=== PATIENT | female | born 1955 | race Caucasian/White ===

== ENCOUNTER 2016-12-13 21:46 | Inpatient (IN) | payer MEDICARE, OTHER ==
[2016-12-13 21:58] VITALS: BMI 34.4
[2016-12-13] MEDS ORDERED: Albuterol-Ipratrop 3 mg / 0.5 (3 ml) UD IH STA (22:06)
--- NOTE | 2016-12-13 22:10 | ED PDOC ---
Arrival/HPI - General Chief Complaint: Shortness Of Breath Time Seen by Provider: 12/13/16 21:50 Historian: Patient - History of Present Illness Narrative History of Present Illness (Text): 12/13/16 22:01 Lottie Wong is a 61 year old female, whose past medical history includes COPD, hypertension, asthma, and is a former smoker, presents to the emergency department complaining of chest tightness. She reports she developed chest tightness tonight and notes she has been experiencing subjective fever, chills, and dry cough for the past week. Patient states she has took [id number] medication with no significant relief. Patient denies shortness of breath, headache, nausea, vomiting, diarrhea, diaphoresis, jaw pain, back pain, lower extremity pain/swelling, or other complaints. Time/Duration: 1 week Symptom Onset: Sudden Symptom Course: Unchanged Quality: Tightness (chest) Modifying Factors (Text): None Associated Symptoms (Text): cough, chills, and fever Past Medical History - Provider Review Nursing Documentation Reviewed: Yes - Infectious Disease Hx of Infectious Diseases: None - Tetanus Immunization Tetanus Immunization: Unknown - Reproductive Menopause: No - Past Medical History Past Medical History: No Previous - Cardiac Hx Cardiac Disorders: Yes Hx Hypertension: Yes - Pulmonary Hx Asthma: Yes Hx Chronic Obstructive Pulmonary Disease (COPD): Yes - Neurological Hx Neurological Disorder: No - HEENT Hx HEENT Disorder: No - Renal Hx Renal Disorder: No - Endocrine/Metabolic Hx Endocrine Disorders: No - Hematological/Oncological Hx Blood Disorders: No - Integumentary Hx Dermatological Disorder: No - Musculoskeletal/Rheumatological Hx Musculoskeletal Disorders: Yes Hx Degenerative Joint Disease: Yes Hx Rheumatoid Arthritis: Yes Hx Spinal Stenosis: Yes - Gastrointestinal Hx Gastrointestinal Disorders: No - Genitourinary/Gynecological Hx Genitourinary Disorders: No - Psychiatric Hx Anxiety: Yes Hx Depression: No Hx Emotional Abuse: No Hx Physical Abuse: No Hx Substance Use: No - Past Surgical History Past Surgical History: Non-Contributing - Surgical History Hx Hysterectomy: Yes Hx Joint Replacement: Yes (bilateral knees) - Anesthesia Hx Anesthesia: Yes - Suicidal Assessment Feels Threatened In Home Enviroment: No Family/Social History - Physician Review Nursing Documentation Reviewed: Yes Family/Social History: Hypertension Smoking Status: Former Smoker Hx Alcohol Use: No Hx Substance Use: No Hx Substance Use Treatment: No Allergies/Home Meds Allergies/Adverse Reactions: Allergies acetaminophen [From Percocet] Allergy (Verified 07/25/15 00:08) hives aspirin Allergy (Verified 12/13/16 22:17) RASH azithromycin [From Zithromax] Allergy (Verified 07/25/15 00:08) RASH codeine Allergy (Verified 07/25/15 00:08) ANAPHYLAXIS meperidine HCl [From Demerol] Allergy (Verified 07/24/15 17:37) SWELLING morphine Allergy (Verified 07/24/15 17:37) SWELLING oxycodone HCl [From Percocet] Allergy (Verified 07/25/15 00:08) hives tramadol Allergy (Verified 07/24/15 17:37) SWELLING hydrocodone bitartrate [From Vicodin] Adverse Reaction (Verified 07/25/15 00:08) NAUSEA zithromax Allergy (Uncoded 07/25/15 00:08) hives Home Medications: Home Meds Medication Instructions Recorded Confirmed Unobtainable 12/14/16 12/14/16 Review of Systems - Review of Systems Constitutional: Fevers, Other (chills) Eyes: Normal ENT: Normal Respiratory: Cough. absent: SOB Cardiovascular: Chest Pain (tightness) Gastrointestinal: Normal. absent: Diarrhea, Nausea, Vomiting Genitourinary Female: Normal. absent: Frequency Musculoskeletal: Normal. absent: Neck Pain Skin: Normal Neurological: Normal. absent: Headache, Dizziness Endocrine: Normal Hemo/Lymphatic: Normal Psychiatric: Normal. absent: Depression Physical Exam Vital Signs Reviewed: Yes Vital Signs Temp Pulse Resp BP Pulse Ox 12/14/16 02:11 86 16 149/86 98 12/13/16 22:07 20 96 12/13/16 21:58 98.3 F 97 H 24 187/94 H 93 L Temperature: Afebrile Blood Pressure: Hypertensive Pulse: Tachycardic Respiratory Rate: Normal Appearance: Positive for: Well-Appearing, Non-Toxic, Comfortable Pain Distress: None Mental Status: Positive for: Alert and Oriented X 3 - Systems Exam Head: Present: Atraumatic, Normocephalic Pupils: Present: PERRL Extroacular Muscles: Present: EOMI Conjunctiva: Present: Normal Mouth: Present: Moist Mucous Membranes Neck: Present: Normal Range of Motion Respiratory/Chest: Present: Clear to Auscultation, Good Air Exchange. No: Respiratory Distress, Accessory Muscle Use Cardiovascular: Present: Regular Rate and Rhythm, Normal S1, S2. No: Murmurs Abdomen: Present: Normal Bowel Sounds. No: Tenderness, Distention, Peritoneal Signs Upper Extremity: Present: Normal Inspection. No: Cyanosis, Edema Lower Extremity: Present: Normal Inspection. No: Edema Neurological: Present: GCS=15, CN II-XII Intact, Speech Normal Skin: Present: Warm, Dry, Normal Color. No: Rashes Psychiatric: Present: Alert, Oriented x 3, Normal Insight, Normal Concentration Medical Decision Making ED Course and Treatment: 12/13/16 22:01 Impression: 61 year old female with chest tightness, fever, chills, and cough.. Differential Diagnosis included but are not limited to: COPD vs. ACS vs. pneumonia vs. bronchitis Plan: -- EKG -- Chest X-ray -- Labs -- Aspirin and Duoneb -- Reassess and disposition Prior Visits: Notes and results from previous visits were reviewed. On 07/24/2015 patient came in complaining of shortness of breath. Patient was admitted and diagnosed with influenza-like illness, Tachycardia, Fever. EKG: ED Physician ordered, reviewed, and independently interpreted the EKG. Rate : 97 BPM Rhythm : NSR Interpretation : Non-specific ST/T-wave changes. Inferior infarct. Comparison : Unchanged from 07/24/2015 12/14/16 00:30 Reviewed Chest X-ray shows no acute processes. 12/14/2016 01:16 Case discussed [facility] Dr. Weathers, who is aware and agrees with plan. Accepts patient into her service. Patient will go into telemetry observation for chest pain. Request consults with Dr. Gonzalez and Dr. Hays. 12/14/16 02:10 - Lab Interpretations Lab Results: 12/13/16 22:25 12/13/16 22:25 Lab Results 12/13/16 22:25: PT 11.1, INR 1.03, APTT 28.2 12/13/16 22:25: WBC 9.8 D, RBC 4.26, Hgb 12.1, Hct 36.7, MCV 86.2, MCH 28.4, MCHC 33.0, RDW 13.6, Plt Count 311, MPV 9.1 12/13/16 22:25: Sodium 139, Potassium 3.4 L, Chloride 104, Carbon Dioxide 25, Anion Gap 13, BUN 14, Creatinine 0.8, Est GFR ( Amer) > 60, Est GFR (Non- Af Amer) > 60, Random Glucose 194 H, Calcium 9.2, Total Bilirubin 0.6, AST 23, ALT 26, Alkaline Phosphatase 138 H, Lactate Dehydrogenase 513, Total Creatine Kinase 132, Troponin I < 0.01, Total Protein 7.3, Albumin 3.5, Globulin 3.8, Albumin/Globulin Ratio 0.9 L I have reviewed the lab results: Yes - RAD Interpretation Radiology Orders: 12/13/16 22:06 CHEST PORTABLE [RAD] Stat - EKG Interpretation Interpreted by ED Physician: Yes Type: 12 lead EKG - Medication Orders Current Medication Orders: Albuterol/Ipratropium (Duoneb 3 Mg/0.5 Mg (3 Ml) Ud) 3 ml IH Q4H PRN PRN Reason: Wheezing Discontinued Medications Albuterol/Ipratropium (Duoneb 3 Mg/0.5 Mg (3 Ml) Ud) 3 ml IH ONCE STA Stop: 12/13/16 22:07 Last Admin: 12/13/16 22:16 Dose: 3 ml Potassium Chloride (K-Dur 20 Meq Er Tab) 20 meq PO STAT STA Stop: 12/14/16 00:29 Last Admin: 12/14/16 00:51 Dose: 20 meq - Scribe Statement The provider has reviewed the documentation as recorded by the Julian Jamison training with Radha Gerber All medical record entries made by the Cecilibflori were at my direction and personally dictated by me. I have reviewed the chart and agree that the record accurately reflects my personal performance of the history, physical exam, medical decision making, and the department course for this patient. I have also personally directed, reviewed, and agree with the discharge instructions and disposition. Disposition/Present on Arrival - Present on Arrival Any Indicators Present on Arrival: No History of DVT/PE: No History of Uncontrolled Diabetes: No Urinary Catheter: No History of Decub. Ulcer: No History Surgical Site Infection Following: None - Disposition Have Diagnosis and Disposition been Completed?: Yes Diagnosis: Chest pain, COPD (chronic obstructive pulmonary disease) Disposition: HOSPITALIZED Disposition Time: 01:15 Patient Plan: Observation Patient Problems: Current Active Problems Problem Status Onset COPD (chronic obstructive pulmonary disease) Acute Chest pain Acute Condition: STABLE
[2016-12-13 22:36] LABS: HEMOGLOBIN 12.1 gm/dL (12.0-16.0); MEAN CELL VOLUME 86.2 fL (80.0-105.0); MEAN CORPUSCULAR HEMOGLOBIN 28.4 pg (25.0-35.0); MEAN PLATELET VOLUME 9.1 fl (7.0-11.0); RBC 4.26 10^6/uL (3.5-6.1); RED CELL DISTRIBUTION WIDTH 13.6 % (11.5-14.5); WHITE BLOOD COUNT 9.8 10^3/ul (4.5-11.0)
[2016-12-13 22:47] LABS: ALB/GLOB RATIO 0.9 (1.1-1.8); ALBUMIN 3.5 g/dL (3.0-4.8); ALT/SGPT 26 U/L (7-56); AST/SGOT 23 U/L (15-39); BLOOD UREA NITROGEN 14 mg/dL (7-21); CALCIUM 9.2 mg/dL (8.4-10.5); GFR AFRICAN-AMERICAN > 60; GFR NON-AFRICAN AMERICAN > 60
[2016-12-13 22:53] LABS: INR 1.03 (0.93-1.08); PARTIAL THROMBOPLASTIN TIME 28.2 Seconds (23.7-30.8); PROTHROMBIN TIME 11.1 Seconds (9.9-11.8)
[2016-12-13 22:58] LABS: TROPONIN I < 0.01 ng/mL
[2016-12-14] MEDS ORDERED: Potassium Chloride 20 mEq ER Tab PO STA (00:28)
--- NOTE | 2016-12-14 07:37 | RAD ---
HISTORY: pain COMPARISON: 07/24/2015 FINDINGS: LUNGS: No active pulmonary disease. PLEURA: No significant pleural effusion identified, no pneumothorax apparent. CARDIOVASCULAR: Normal. OSSEOUS STRUCTURES: No significant abnormalities. VISUALIZED UPPER ABDOMEN: Normal. OTHER FINDINGS: None. IMPRESSION: No active disease.
[2016-12-14 09:05] LABS: BASO # 0.05 K/mm3 (0.0-2.0); BASO % 0.6 % (0.0-3.0); EOS # 0.2 (0.0-0.7); GRAN # 6.62 (1.4-6.5); GRAN % 74.1 % (50.0-68.0); HEMOGLOBIN 12.8 gm/dL (12.0-16.0); LYMPH # 1.6 (1.2-3.4); LYMPH % 18.1 % (22.0-35.0); MEAN CELL VOLUME 86.4 fL (80.0-105.0); MEAN CORPUSCULAR HEMOGLOBIN 28.6 pg (25.0-35.0); MEAN CORPUSCULAR HGB CONC 33.2 g/dl (31.0-37.0); MEAN PLATELET VOLUME 9.2 fl (7.0-11.0); MONO # 0.5 (0.1-0.6); MONO % 5.2 % (1.0-6.0); PLATELET COUNT 330 10^3/uL (120.0-450.0); RBC 4.47 10^6/uL (3.5-6.1); RED CELL DISTRIBUTION WIDTH 13.6 % (11.5-14.5); WHITE BLOOD COUNT 8.9 10^3/ul (4.5-11.0)
[2016-12-14 09:08] LABS: ALB/GLOB RATIO 0.9 (1.1-1.8); ALBUMIN 3.9 g/dL (3.0-4.8); ALT/SGPT 25 U/L (7-56); AST/SGOT 19 U/L (15-39); BLOOD UREA NITROGEN 11 mg/dL (7-21); CALCIUM 9.3 mg/dL (8.4-10.5); GFR AFRICAN-AMERICAN > 60; GFR NON-AFRICAN AMERICAN > 60; HDL CHOLESTEROL 35 mg/dL (29-60)
[2016-12-14 09:19] LABS: LDL CHOLESTEROL 187 mg/dL (0-129)
[2016-12-14 09:21] LABS: TROPONIN I < 0.01 ng/mL
[2016-12-14] MEDS: Albuterol-Ipratrop 3 mg / 0.5 (3 ml) UD IH PRN ×2 (10:22→16:40)
--- NOTE | 2016-12-14 10:50 | CARD ---
APPROVED REPORT EKG Measurement Heart [id number] <Conclusion> Normal sinus rhythm Inferior infarct, age undetermined Abnormal ECG
[2016-12-14] MEDS ORDERED: Potassium Chloride 20 mEq ER Tab PO ONE (11:13)
--- NOTE | 2016-12-14 14:51 | CARD ---
APPROVED REPORT EXAM: Two-dimensional and M-mode echocardiogram with Doppler and color Doppler. INDICATION Chest Pain 2D DIMENSIONS Left Atrium (2D)3.6 (1.6-4.0cm)IVSd1.3 (0.7-1.1cm) Aortic Root (2D)2.4 (2.0-3.7cm)LVDd3.6 (3.9-5.9cm) PWd1.2 (0.7-1.1cm)LVDs2.1 (2.5-4.0cm) FS (%) 43.1 %LVEF (%)75.0 (>50%) M-Mode DIMENSIONS Aortic Cusp Exc.2.00 (1.5-2.0cm) Mitral Valve MV E Uadbmisb08.9cm/sMV A Lfpaksqg89.6cm/sE/A ratio1.2 TDI Lateral E' Peak V6.34cm/sMedial E' Peak V8.97cm/sE/Lateral E'13.2 E/Medial E'9.4 Pulmonary Valve PV Peak Oesjfhct052.0cm/sPV Peak Grad.4mmHg Tricuspid Valve TR Peak Kbzqgqqo097ph/sRAP [id number] Peak Gr.16mmHg [id number] LEFT VENTRICLE The left ventricle is normal size. There is mild concentric left ventricular hypertrophy. The left ventricular function is normal.EF-55% There is normal LV segmental wall motion. Transmitral Doppler flow pattern is Grade III-reversible restrictive diastolic dysfunction. No left ventricle thrombus noted on this study. There is no ventricular septal defect visualized. There is no left ventricular aneurysm. There is no mass noted in the left ventricle. RIGHT VENTRICLE The right ventricle is normal size. There is normal right ventricular wall thickness. The right ventricular systolic function is normal. ATRIA The left atrium size is normal. The right atrium size is normal. The interatrial septum is intact with no evidence for an atrial septal defect. AORTIC VALVE The aortic valve is thickened but opens well. No aortic regurgitation is present. There is no aortic valvular stenosis. There is no aortic valvular vegetation. MITRAL VALVE The mitral valve is thickened but opens well. Mitral regurgitation is mild to moderate. There is no mitral valve stenosis. There is no evidence of mitral valve prolapse. TRICUSPID VALVE The tricuspid valve leaflets are thickened , but open well. There is trace tricuspid regurgitation.RVSP-21 mmof Hg. There is no tricuspid valve stenosis. There is no tricuspid valve prolapse or vegetation. PULMONIC VALVE The pulmonic valve is borderline thickened. There is no pulmonic valvular regurgitation. There is no pulmonic valvular stenosis. GREAT VESSELS The aortic root is normal in size. The ascending aorta is normal in size. The pulmonary artery is normal. The IVC is normal in size and collapses >50% with inspiration. PERICARDIAL EFFUSION There is no pleural effusion. There is no pericardial effusion. <Conclusion> The left ventricle is normal size. There is mild concentric left ventricular hypertrophy. The left ventricular function is normal.EF-55% Mitral regurgitation is mild to moderate. There is trace tricuspid regurgitation.RVSP-21 mmof Hg. No Vegetation no thrombus.
[2016-12-14] MEDS: cefTRIAXone 1 gm 1 GM/100 ML BAG IVPB SCH (17:23)
[2016-12-14] MEDS: Benzocaine/Menthol (Cepacol) Lozenge MT PRN (17:44)
[2016-12-14] MEDS: MethylPREDNISolone 40 mg Vial IVP SCH (21:55)
[2016-12-14] MEDS: Fluticasone-Salmeterol 500-50mcg Diskus INH SCH (22:00)
[2016-12-15] MEDS: Pantoprazole 40 mg EC Tab PO SCH (06:20)
[2016-12-15 08:19] LABS: MEAN CELL VOLUME 85.7 fL (80.0-105.0); MEAN CORPUSCULAR HEMOGLOBIN 28.7 pg (25.0-35.0); MEAN CORPUSCULAR HGB CONC 33.5 g/dl (31.0-37.0); MEAN PLATELET VOLUME 9.4 fl (7.0-11.0); RBC 4.88 10^6/uL (3.5-6.1); RED CELL DISTRIBUTION WIDTH 13.4 % (11.5-14.5); WHITE BLOOD COUNT 10.3 10^3/ul (4.5-11.0)
[2016-12-15 08:31] LABS: BLOOD UREA NITROGEN 14 mg/dL (7-21); CALCIUM 9.9 mg/dL (8.4-10.5); GFR AFRICAN-AMERICAN > 60; GFR NON-AFRICAN AMERICAN > 60; HDL CHOLESTEROL 37 mg/dL (29-60)
[2016-12-15 08:38] LABS: % IRON SATURATION 15 % (20-55); IRON 43 ug/dL (45-180); TOTAL IRON BINDING CAPACITY 290 ug/dL (265-497)
[2016-12-15 08:42] LABS: LDL CHOLESTEROL 213 mg/dL (0-129)
[2016-12-15 09:16] LABS: TROPONIN I < 0.01 ng/mL
[2016-12-15] MEDS: Fluticasone-Salmeterol 500-50mcg Diskus INH SCH ×2 (10:44→21:21)
[2016-12-15] MEDS: Enoxaparin 40 mg Syringe SC SCH (10:52)
[2016-12-15] MEDS: MethylPREDNISolone 40 mg Vial IVP SCH ×2 (12:51→21:24)
[2016-12-15] MEDS: cefTRIAXone 1 gm 1 GM/100 ML BAG IVPB SCH (14:07)
--- NOTE | 2016-12-15 14:44 | CP.PCM.CON ---
<Pranav Wallis - Last Filed: 12/15/16 14:44> History of Present Illness - History of Present Illness History of Present Illness: PGY-[address] Mao's Neurology Service: Reason for consultation: Right sided numbness This is a 61 year old female with PMHx COPD, HTN, Asthma who presented complaining of chest tightness. Associated symptoms include subjective fever, chills, dry cough. Patient has also been experiencing intermittent right sided numbness from the face down to the leg. Patient denies weakness, headaches. PMHx: COPD, Asthma, HTN PSHx: Knee arthroplasy (2010, 2011) Family Hx: Mother with CVA Social: Former smoker, quit at age 16. Denies alcohol, drug use. Allergies: Meperidine, Morphine, Tramadol, Tylenol, Azithromycin, codeine, ASA Review of Systems - Constitutional Constitutional: absent: Headache, Weakness - EENT Eyes: absent: Change in Vision - Cardiovascular Cardiovascular: absent: Chest Pain - Respiratory Respiratory: absent: Dyspnea - Gastrointestinal Gastrointestinal: absent: Abdominal Pain - Genitourinary Genitourinary: absent: Dysuria - Musculoskeletal Musculoskeletal: Numbness. absent: Muscle Weakness - Neurological Neurological: Numbness. absent: Dizziness, Headaches - Endocrine Endocrine: absent: Palpitations Past Patient History - Infectious Disease Hx of Infectious Diseases: None - Tetanus Immunizations Tetanus Immunization: Unknown - Past Medical History & Family History Past Medical History?: Yes - Past Social History Smoking Status: Former Smoker - CARDIAC Hx Cardiac Disorders: Yes Hx Hypertension: Yes - PULMONARY Hx Respiratory Disorders: Yes Hx Asthma: Yes Hx Chronic Obstructive Pulmonary Disease (COPD): Yes Hx Pneumonia: Yes - NEUROLOGICAL Hx Neurological Disorder: No - HEENT Hx HEENT Problems: Yes (Glasses) - RENAL Hx Kidney Stones: Yes - ENDOCRINE/METABOLIC Hx Endocrine Disorders: No - HEMATOLOGICAL/ONCOLOGICAL Hx Blood Disorders: No - INTEGUMENTARY Hx Dermatological Problems: No - MUSCULOSKELETAL/RHEUMATOLOGICAL Hx Arthritis: Yes Hx Degenerative Joint Disease: Yes Hx Falls: Yes - GASTROINTESTINAL Hx Gastrointestinal Disorders: No - GENITOURINARY/GYNECOLOGICAL Hx Urinary Tract Infection: Yes - PSYCHIATRIC Hx Anxiety: Yes - SURGICAL HISTORY Hx Surgeries: Yes - ANESTHESIA Hx Anesthesia: Yes Meds Allergies/Adverse Reactions: Allergies Allergy/AdvReac Type Severity Reaction Status Date / Time acetaminophen [From Percocet] Allergy hives Verified 07/25/15 00:08 aspirin Allergy RASH Verified 12/13/16 22:17 azithromycin [From Zithromax] Allergy RASH Verified 07/25/15 00:08 codeine Allergy ANAPHYLAXIS Verified 07/25/15 00:08 meperidine HCl [From Demerol] Allergy SWELLING Verified 07/24/15 17:37 morphine Allergy SWELLING Verified 07/24/15 17:37 oxycodone HCl [From Percocet] Allergy hives Verified 07/25/15 00:08 tramadol Allergy SWELLING Verified 07/24/15 17:37 hydrocodone bitartrate AdvReac NAUSEA Verified 07/25/15 00:08 [From Vicodin] zithromax Allergy hives Uncoded 07/25/15 00:08 - Medications Medications: Current Medications Albuterol/Ipratropium (Duoneb 3 Mg/0.5 Mg (3 Ml) Ud) 3 ml IH [id number] PRN PRN Reason: Shortness of Breath Amlodipine Besylate (Norvasc) 10 mg PO DAILY [facility] Last Admin: 12/15/16 10:40 Dose: 10 mg Atorvastatin Calcium (Lipitor) 40 mg PO DIN [facility] Last Admin: 12/14/16 17:23 Dose: 40 mg Benzocaine/Menthol (Cepacol Sore Throat) 1 hemal MT Q2H PRN PRN Reason: Sore Throat Last Admin: 12/14/16 17:44 Dose: 1 hemal Enoxaparin Sodium (Lovenox) 40 mg SC DAILY [facility] PRN Reason: Protocol Last Admin: 12/15/16 10:52 Dose: Not Given Hydrochlorothiazide (Microzide) 12.5 mg PO DAILY [facility] Last Admin: 12/15/16 10:43 Dose: 12.5 mg Ceftriaxone Sodium (Rocephin 1 Gram Ivpb) 1 gm in 100 mls @ 100 mls/hr IVPB DAILY [facility] PRN Reason: Protocol Last Admin: 12/15/16 14:07 Dose: 100 mls/hr Methylprednisolone (Solu-Medrol) 40 mg IVP Q12 [facility] Last Admin: 12/15/16 12:51 Dose: 40 mg Montelukast Sodium (Singulair) 10 mg PO HS [facility] Last Admin: 12/14/16 22:03 Dose: Not Given Pantoprazole Sodium (Protonix Ec Tab) 40 mg PO 0600 [facility] Last Admin: 12/15/16 06:20 Dose: 40 mg Fluticasone/Salmeterol (Advair Diskus 500/50) 1 puff INH Q12 [facility] Last Admin: 12/15/16 10:44 Dose: 1 puff Physical Exam - Constitutional Appears: Non-toxic, No Acute Distress - Head Exam Head Exam: ATRAUMATIC, NORMAL INSPECTION, NORMOCEPHALIC - Eye Exam Eye Exam: EOMI, PERRL - ENT Exam ENT Exam: Mucous Membranes Moist - Respiratory Exam Respiratory Exam: Clear to Auscultation Bilateral - Cardiovascular Exam Cardiovascular Exam: REGULAR RHYTHM - GI/Abdominal Exam GI & Abdominal Exam: Normal Bowel Sounds - Neurological Exam Neurological exam: Alert, CN II-XII Intact, Oriented x3, Reflexes Normal Additional comments: Non-focal neurological exam. No pronator drift. Not currently numb. Sensations intact throughout. Muscle strength 5/5 throughout. Results - Vital Signs Recent Vital Signs: Last Vital Signs Temp 98.4 F 12/15/16 07:30 Pulse 92 H 12/15/16 07:30 Resp 18 12/15/16 07:30 BP 145/82 12/15/16 12:18 Pulse Ox 96 12/15/16 07:30 - Labs Result Diagrams: 12/15/16 07:30 12/15/16 07:30 Labs: Laboratory Results - last 24 hr 12/15/16 12/15/16 12/15/16 07:30 07:30 07:30 WBC RBC Hgb Hct MCV MCH MCHC RDW Plt Count MPV Sodium 137 Potassium 4.4 Chloride 104 Carbon Dioxide 22 Anion Gap 15 BUN 14 Creatinine 0.7 Est GFR ( Amer) > 60 Est GFR (Non-Af Amer) > 60 Random Glucose 178 H Hemoglobin A1c 6.5 Calcium 9.9 Iron 43 L TIBC 290 % Saturation 15 L Lactate Dehydrogenase Total Creatine Kinase Troponin I Triglycerides 48 Cholesterol 261 H LDL Cholesterol Direct 213 H HDL Cholesterol 37 Vitamin B12 509 Folate 8.0 TSH 3rd Generation 12/15/16 12/15/16 12/15/16 07:30 07:30 07:30 WBC 10.3 RBC 4.88 Hgb 14.0 Hct 41.8 MCV 85.7 MCH 28.7 MCHC 33.5 RDW 13.4 Plt Count 373 MPV 9.4 Sodium Potassium Chloride Carbon Dioxide Anion Gap BUN Creatinine Est GFR ( Amer) Est GFR (Non-Af Amer) Random Glucose Hemoglobin A1c Calcium Iron TIBC % Saturation Lactate Dehydrogenase 446 Total Creatine Kinase 78 Troponin I < 0.01 Triglycerides Cholesterol LDL Cholesterol Direct HDL Cholesterol Vitamin B12 Folate TSH 3rd Generation 0.47 Assessment & Plan - Assessment and Plan (Free Text) Assessment: This is a 61 year old female with PMHx COPD, HTN, Asthma who presented complaining of chest tightness. Patient is intermittently experiencing paresthesias on the entire right side of her body. It is likely that hypertensive urgency is causing these paresthesias. No focal deficits on examination. Patient is iron deficient. Plan: 1) Maintain SBP between 130-140 mmHg. 2) Monitor and manage anemia. 3) Gabapentin 100 mg qHS for paresthesias. 4) Since patient cannot tolerate MRI, CT head without contrast 5) Since allergic to ASA, start Plavix 75 mg for stroke prevention Patient is neurologically stable - Date & Time Date: 12/15/16 Time: 14:53 <Margarito Mao - Last Filed: 12/15/16 14:55> Meds - Medications Medications: Current Medications Albuterol/Ipratropium (Duoneb 3 Mg/0.5 Mg (3 Ml) Ud) 3 ml IH [id number] PRN PRN Reason: Shortness of Breath Amlodipine Besylate (Norvasc) 10 mg PO DAILY [facility] Last Admin: 12/15/16 10:40 Dose: 10 mg Atorvastatin Calcium (Lipitor) 40 mg PO DIN [facility] Last Admin: 12/14/16 17:23 Dose: 40 mg Benzocaine/Menthol (Cepacol Sore Throat) 1 hemal MT Q2H PRN PRN Reason: Sore Throat Last Admin: 12/14/16 17:44 Dose: 1 hemal Enoxaparin Sodium (Lovenox) 40 mg SC DAILY [facility] PRN Reason: Protocol Last Admin: 12/15/16 10:52 Dose: Not Given Gabapentin (Neurontin) 100 mg PO TID [facility] PRN Reason: Protocol Hydrochlorothiazide (Microzide) 12.5 mg PO DAILY [facility] Last Admin: 12/15/16 10:43 Dose: 12.5 mg Ceftriaxone Sodium (Rocephin 1 Gram Ivpb) 1 gm in 100 mls @ 100 mls/hr IVPB DAILY [facility] PRN Reason: Protocol Last Admin: 12/15/16 14:07 Dose: 100 mls/hr Methylprednisolone (Solu-Medrol) 40 mg IVP Q12 [facility] Last Admin: 12/15/16 12:51 Dose: 40 mg Montelukast Sodium (Singulair) 10 mg PO HS [facility] Last Admin: 12/14/16 22:03 Dose: Not Given Pantoprazole Sodium (Protonix Ec Tab) 40 mg PO 0600 [facility] Last Admin: 12/15/16 06:20 Dose: 40 mg Fluticasone/Salmeterol (Advair Diskus 500/50) 1 puff INH Q12 [facility] Last Admin: 12/15/16 10:44 Dose: 1 puff Results - Vital Signs Recent Vital Signs: Last Vital Signs Temp 98.4 F 12/15/16 07:30 Pulse 92 H 12/15/16 07:30 Resp 18 12/15/16 07:30 BP 145/82 12/15/16 12:18 Pulse Ox 96 12/15/16 07:30 - Labs Result Diagrams: 12/15/16 07:30 12/15/16 07:30 Labs: Laboratory Results - last 24 hr 12/15/16 12/15/16 12/15/16 07:30 07:30 07:30 WBC RBC Hgb Hct MCV MCH MCHC RDW Plt Count MPV Sodium 137 Potassium 4.4 Chloride 104 Carbon Dioxide 22 Anion Gap 15 BUN 14 Creatinine 0.7 Est GFR ( Amer) > 60 Est GFR (Non-Af Amer) > 60 Random Glucose 178 H Hemoglobin A1c 6.5 Calcium 9.9 Iron 43 L TIBC 290 % Saturation 15 L Lactate Dehydrogenase Total Creatine Kinase Troponin I Triglycerides 48 Cholesterol 261 H LDL Cholesterol Direct 213 H HDL Cholesterol 37 Vitamin B12 509 Folate 8.0 TSH 3rd Generation 12/15/16 12/15/16 12/15/16 07:30 07:30 07:30 WBC 10.3 RBC 4.88 Hgb 14.0 Hct 41.8 MCV 85.7 MCH 28.7 MCHC 33.5 RDW 13.4 Plt Count 373 MPV 9.4 Sodium Potassium Chloride Carbon Dioxide Anion Gap BUN Creatinine Est GFR ( Amer) Est GFR (Non-Af Amer) Random Glucose Hemoglobin A1c Calcium Iron TIBC % Saturation Lactate Dehydrogenase 446 Total Creatine Kinase 78 Troponin I < 0.01 Triglycerides Cholesterol LDL Cholesterol Direct HDL Cholesterol Vitamin B12 Folate TSH 3rd Generation 0.47 Attending/Attestation - Attestation I have personally seen and examined this patient.: Yes I have fully participated in the care of the patient.: Yes I have reviewed all pertinent clinical information: Yes
--- NOTE | 2016-12-15 15:51 | CT ---
PROCEDURE: CT HEAD WITHOUT CONTRAST. HISTORY: RIGHT SIDE NUMBNESS COMPARISON: None available. TECHNIQUE: Axial computed tomography images were obtained through the head/brain without intravenous contrast. Radiation dose: Total exam DLP = 667.72 mGy-cm. This CT exam was performed using one or more of the following dose reduction techniques: Automated exposure control, adjustment of the mA and/or kV according to patient size, and/or use of iterative reconstruction technique. FINDINGS: HEMORRHAGE: No intracranial hemorrhage. BRAIN: No mass effect or edema. No atrophy or chronic microvascular ischemic changes. VENTRICLES: Unremarkable. No hydrocephalus. CALVARIUM: Unremarkable. PARANASAL SINUSES: Unremarkable as visualized. No significant inflammatory changes. MASTOID AIR CELLS: Unremarkable as visualized. No inflammatory changes. OTHER FINDINGS: None. IMPRESSION: No evidence of acute intracranial hemorrhage intracranial collection territorial infarct mass effect or midline shift. The MRI study is more sensitive for acute or subacute infarction.
--- NOTE | 2016-12-15 16:15 | US ---
PROCEDURE: Bilateral carotid artery duplex ultrasound HISTORY: Carotid stenosis TIA PHYSICIAN(S): Frank Akbar MD. TECHNIQUE: Duplex sonography and color-flow Doppler were used to evaluate the carotid bifurcations and limited segments of the vertebral arteries bilaterally. FINDINGS: There is mild to moderate smooth heterogeneous plaque noted at the carotid bifurcations bilaterally. The peak systolic velocity in the proximal right internal carotid artery is 139 cm/sec. This corresponds to a 40-59 percent proximal right ICA stenosis. Normal systolic velocities are noted in the proximal right external carotid artery. There is antegrade flow in the right vertebral artery. The peak systolic velocity in the proximal left internal carotid artery is 91 cm per sec. This corresponds to a 20-39 percent proximal left ICA stenosis. Normal velocities are seen in the proximal left external carotid artery. There is antegrade flow in the small left vertebral artery. IMPRESSION: 1. 40-59 percent proximal right ICA stenosis. 2. 20-39 percent proximal left ICA stenosis. 3. Antegrade flow in both vertebral arteries.
--- NOTE | 2016-12-15 19:37 | CP.PCM.PN ---
Subjective - Date & Time of Evaluation Date of Evaluation: 12/15/16 Time of Evaluation: 12:00 - Subjective Subjective: This is a 61 year old female with PMHx COPD, HTN, Asthma who presented complaining of chest tightness. Associated symptoms include subjective fever, chills, dry cough. Patient has also been experiencing intermittent right sided numbness from the face down to the leg. Patient denies weakness, headaches.neuromnconsult called Objective - Vital Signs/Intake and Output Vital Signs (last 24 hours): Temp Pulse Resp BP Pulse Ox 97.4 F L 99 H 18 145/80 100 12/15/16 17:17 12/15/16 17:17 12/15/16 17:17 12/15/16 17:17 12/15/16 17:17 Intake and Output: 12/15/16 12/16/16 18:59 06:59 Intake Total 780 Balance 780 - Medications Medications: Current Medications Albuterol/Ipratropium (Duoneb 3 Mg/0.5 Mg (3 Ml) Ud) 3 ml IH [id number] PRN PRN Reason: Shortness of Breath Amlodipine Besylate (Norvasc) 10 mg PO DAILY [facility] Last Admin: 12/15/16 10:40 Dose: 10 mg Atorvastatin Calcium (Lipitor) 40 mg PO DIN [facility] Last Admin: 12/15/16 17:43 Dose: Not Given Benzocaine/Menthol (Cepacol Sore Throat) 1 hemal MT Q2H PRN PRN Reason: Sore Throat Last Admin: 12/14/16 17:44 Dose: 1 hemal Enoxaparin Sodium (Lovenox) 40 mg SC DAILY LE PRN Reason: Protocol Last Admin: 12/15/16 10:52 Dose: Not Given Gabapentin (Neurontin) 100 mg PO TID LE PRN Reason: Protocol Last Admin: 12/15/16 17:43 Dose: 100 mg Hydrochlorothiazide (Microzide) 12.5 mg PO DAILY [facility] Last Admin: 12/15/16 10:43 Dose: 12.5 mg Ceftriaxone Sodium (Rocephin 1 Gram Ivpb) 1 gm in 100 mls @ 100 mls/hr IVPB DAILY [facility] PRN Reason: Protocol Last Admin: 12/15/16 14:07 Dose: 100 mls/hr Methylprednisolone (Solu-Medrol) 40 mg IVP Q12 [facility] Last Admin: 12/15/16 12:51 Dose: 40 mg Montelukast Sodium (Singulair) 10 mg PO HS [facility] Last Admin: 12/14/16 22:03 Dose: Not Given Pantoprazole Sodium (Protonix Ec Tab) 40 mg PO 0600 [facility] Last Admin: 12/15/16 06:20 Dose: 40 mg Fluticasone/Salmeterol (Advair Diskus 500/50) 1 puff INH Q12 [facility] Last Admin: 12/15/16 10:44 Dose: 1 puff - Labs Labs: 12/15/16 07:30 12/15/16 07:30 PT 11.1 Seconds (9.9-11.8) 12/13/16 22:25 INR 1.03 (0.93-1.08) 12/13/16 22:25 APTT 28.2 Seconds (23.7-30.8) 12/13/16 22:25 - Constitutional Appears: Well - Head Exam Head Exam: ATRAUMATIC, NORMAL INSPECTION, NORMOCEPHALIC - Eye Exam Eye Exam: EOMI, Normal appearance, PERRL Pupil Exam: NORMAL ACCOMODATION, PERRL - ENT Exam ENT Exam: Mucous Membranes Moist, Normal Exam - Neck Exam Neck Exam: Full ROM, Normal Inspection. absent: Lymphadenopathy - Respiratory Exam Respiratory Exam: Clear to Ausculation Bilateral, NORMAL BREATHING PATTERN - Cardiovascular Exam Cardiovascular Exam: REGULAR RHYTHM, +S1, +S2. absent: Murmur - GI/Abdominal Exam GI & Abdominal Exam: Soft, Normal Bowel Sounds. absent: Tenderness - Back Exam Back Exam: NORMAL INSPECTION - Neurological Exam Neurological Exam: Alert, Awake, CN II-XII Intact, Normal Gait, Oriented x3 - Psychiatric Exam Psychiatric exam: Normal Affect, Normal Mood - Skin Skin Exam: Dry, Intact, Normal Color, Warm Assessment and Plan (1) COPD (chronic obstructive pulmonary disease) Status: Acute (2) Chest pain Status: Acute (3) Abdominal pain Status: Acute (4) Abnormal renal function Status: Acute (5) Dyspnea Status: Acute (6) Fever Status: Acute (7) Influenza-like illness Status: Acute (8) Tachycardia Status: Acute - Assessment and Plan (Free Text) Assessment: - Assessment and Plan (Free Text) Assessment: This is a 61 year old female with PMHx COPD, HTN, Asthma who presented complaining of chest tightness. Patient is intermittently experiencing paresthesias on the entire right side of her body. It is likely that hypertensive urgency is causing these paresthesias. No focal deficits on examination. Patient is iron deficient. Plan: 1) Maintain SBP between 130-140 mmHg. 2) Monitor and manage anemia. 3) Gabapentin 100 mg qHS for paresthesias. 4) Since patient cannot tolerate MRI, CT head without contrast 5) Since allergic to ASA, start Plavix 75 mg for stroke prevention Patient is neurologically stable as per neuro , equipment coordinator and cardio is on the case
[2016-12-15] MEDS: Benzocaine/Menthol (Cepacol) Lozenge MT PRN (20:06)
[2016-12-15] MEDS: Albuterol-Ipratrop 3 mg / 0.5 (3 ml) UD IH PRN (20:36)
--- NOTE | 2016-12-16 00:40 | CON ---
DATE: 12/14/2016 REFERRING PHYSICIAN: Kathe Waethers MD REASON FOR CONSULTATION: Cough, shortness of breath, and laryngitis. HISTORY OF PRESENT ILLNESS: This is a 61-year-old female with known history of chronic obstructive lung disease, hypertension, stopped smoking many years ago, been having cough and shortness of breath, treated as an outpatient with amoxicillin without much benefit, and had increased chest tightness, cough, and shortness of breath. She came to emergency room where she got IV and inhaled bronchodilator with some relief of persistent symptom, ended up getting admission. Presently, lying in the bed, has hoarseness, facial pain, and cough. No chest pain, no hematuria, and no diarrhea, leg pain or leg swelling. PAST MEDICAL HISTORY: Chronic obstructive lung disease and hypertension. FAMILY HISTORY: No significant cardiopulmonary disease reported other than hypertension. SOCIAL HISTORY: She *------* stopped smoking many years ago. ALLERGY: TO MULTIPLE MEDICATIONS INCLUDING ACETAMINOPHEN, ASPIRIN, ZITHROMAX, CODEINE, MEPERIDINE, MORPHINE, OXYCODONE, TRAMADOL, AND HYDROCODONE. REVIEW OF SYSTEMS: No headache, rhinitis, facial pain, cough, shortness of breath. No chest pain. Admits to snoring at nighttime and daytime sleeping, history of GERD. No abdominal pain or dysuria. No leg pain or leg swelling. PHYSICAL EXAMINATION: GENERAL: Lying in the bed in mild distress secondary to cough and shortness of breath. VITAL SIGNS: Temperature is 98, heart rate is 88, respiratory rate is 20, and blood pressure is 138/73. Pulse oximetry is 99% on nasal cannula. HEENT: Moist mucus membranes. Crowded airway, Mallampati class IV, has bilateral *------* tenderness.. NECK: Supple. No JVD. LUNGS: Scattered rhonchi and few wheezing. CARDIOPULMONARY: S1 and S2. ABDOMEN: Positive epigastric area tenderness. Positive bowel sounds. Abdomen is soft on palpation. EXTREMITIES: There is no edema. NEUROLOGIC: Awake and follows simple commands. MEDICATIONS: She is on Advair 500/50 mcg one puff twice a day, Cepacol lozenges p.r.n., *------* q.6 hours p.r.n., Lipitor 40 mg daily, hydrochlorothiazide 12.5 mg daily, Norvasc 10 mg daily, and Rocephin 1 g daily. LABORATORY DATA: Shows hemoglobin of 12.8, hematocrit of 38.6, WBC of 8.9, and platelet is 330. INR is 1.03 and PTT is 28. Sodium is 140, potassium is 3.9, chloride is 105, bicarbonate is 25, BUN is 11, creatinine is 0.7, glucose is 111, hemoglobin A1c 6.4, calcium 9.3, AST 19, ALT is 25, and alkaline phosphatase is 160. Troponin is less than 0.01. Albumin is 3.9. Cholesterol is 226. TSH is 1.29. DIAGNOSTIC DATA: She had an echocardiogram done today, which showed right ventricular systolic pressure is 21 and left ventricular ejection fraction is 55%, and mild concentric left ventricular hypertrophy. IMPRESSION AND PLAN: Sinusitis with postnasal drip and exacerbation of chronic obstructive lung disease, history of hypertension, may have a gastroesophageal reflux disease, high risk for sleep apnea syndrome, and hyperlipidemia. Case discussed with nursing staff, also spoke to the patient's brother at bedside, all the questions were answered. I agreed with Dr. Weathers with the present management.. We will add Flovent *------* twice a day, [id number] mg at bedtime, and Solo-Medrol 40 mg q.8 hours. Continue Rocephin and Protonix 40 mg daily. Deep venous thrombosis prophylaxis, outpatient PFT and also benefit from sleep study as an outpatient. We will follow with you. Denton Hays MD
[2016-12-16 07:06] LABS: HEMOGLOBIN 13.1 gm/dL (12.0-16.0); MEAN CELL VOLUME 85.3 fL (80.0-105.0); MEAN CORPUSCULAR HEMOGLOBIN 28.7 pg (25.0-35.0); MEAN CORPUSCULAR HGB CONC 33.7 g/dl (31.0-37.0); MEAN PLATELET VOLUME 9.2 fl (7.0-11.0); RBC 4.56 10^6/uL (3.5-6.1); RED CELL DISTRIBUTION WIDTH 13.6 % (11.5-14.5); WHITE BLOOD COUNT 21.5 10^3/ul (4.5-11.0)
[2016-12-16] MEDS: Pantoprazole 40 mg EC Tab PO SCH (07:37)
[2016-12-16 07:41] LABS: TROPONIN I < 0.01 ng/mL
--- NOTE | 2016-12-16 10:54 | CON ---
DATE: 12/14/2016 TYPE OF DICTATION: Consultation. SERVICE: Cardiology. REASON FOR THE CONSULTATION: Cardiac evaluation for chest pain. BRIEF CLINICAL HISTORY: A 61-year-old female with past medical history significant for asthma and hypertension, who is with shortness of breath with asthma and feeling of tightness of breath. The patient just got admitted for cardiac evaluation. The patient denies any chest pain, dyspnea on exertion, or chest pain on exertion. No documented coronary artery disease. No history of previous any cardiac intervention or any angina or dyspnea on exertion or PND, orthopnea. PAST MEDICAL HISTORY: Significant for hypertension and asthma. SOCIAL HISTORY: Denies any smoking, denies any history of alcohol abuse. PAST SURGICAL HISTORY: Significant for total hip joint replacement 2011, 2012. History of *------* medical center before a stress test. CURRENT MEDICATIONS: The patient is taking albuterol inhaler and ipratropium and hypertensive medication, unknown name. REVIEW OF SYSTEMS: As per HPI. ALLERGIES: ACETAMENOPHINE, ASPIRIN, AZITHROMYCIN, CODEINE, TRAMADOL, AND ZITHROMAX. PHYSICAL EXAMINATION VITAL SIGNS: Temperature afebrile, heart rate 74, blood pressure 140/84, height of the patient 4 feet 10 inches, weight of the patient 155 pounds. Body mass index 34.5 kg/m2. HEENT: PERRLA. Extraocular muscles are intact. NECK: Supple. No carotid bruit. No thyromegaly. CHEST: Clear to auscultation. HEART: S1, S2, regular. ABDOMEN: Soft. EXTREMITIES: Clubbing and cyanosis negative. EKG shows normal sinus rate of 91. No acute ST-T changes noted. LABORATORY DATA: Blood workup as follows, WBC 9.8, hemoglobin 12.1, hematocrit 36.7, platelet count 311. Chemistry showed sodium 141, potassium 3.9, chloride 105, bicarb 25, anion gap of 14, BUN 11, creatinine 0.7. Troponin 0.01, *------* negative. IMPRESSION: Atypical chest pain, most likely chronic obstructive pulmonary disease, mild obesity, hypertension, and borderline diabetes, blood sugar 111, yesterday was 194. RECOMMENDATION: We will add troponin also in the morning. If the troponin remains negative, we will discontinue telemetry, schedule a stress test as an outpatient. We will also order a TSH, hemoglobin A1c, and lipid profile. Further recommendations per hospital course. If troponin remains negative, we will discontinue telemetry and schedule a stress test as an outpatient. Thank you Dr. Abbott as you have been taking care of the patient Lottie Wong. Denton Gonzalez MD cc: *------*
[2016-12-16] MEDS: cefTRIAXone 1 gm 1 GM/100 ML BAG IVPB SCH (11:03)
[2016-12-16] MEDS: MethylPREDNISolone 40 mg Vial IVP SCH ×2 (11:04→21:15)
[2016-12-16] MEDS: Enoxaparin 40 mg Syringe SC SCH (11:06)
--- NOTE | 2016-12-16 11:15 | PN ---
DATE: 12/15/2016 REFERRING PHYSICIAN: Kathe Weathers MD SUBJECTIVE: She is lying in the bed at 45-degree. Overall feels better, decreased facial tenderness, decreased postnasal drip and cough, shortness of breath. No nausea, no vomiting, diarrhea. No leg pain or leg swelling. Complaining about whole right face and right upper and lower extremities numbness which is vague symptoms. OBJECTIVE: GENERAL: No acute distress. VITAL SIGNS: Temperature is 98, heart rate 99, respiratory rate is 20, blood pressure 145/80, and pulse oximetry 97% on 4 liter nasal cannula. HEENT: Moist mucous membranes. Small oral cavity. *------*. NECK: *------*. LUNGS: Fair airway, no rhonchi and wheezing. HEART: S1 and S2. ABDOMEN: Soft and nontender. No organomegaly. EXTREMITIES: There is no edema. NEUROLOGIC: Awake. Follows simple commands. CURRENT MEDICATIONS: She is on Advair 500/50 one puff twice daily, CPAP with lozenges q.2 h. p.r.n., DuoNeb every6 hours p.r.n., Lipitor 40 mg daily, Lovenox 40 mg daily, hydrochlorothiazide 12.5 mg daily, Neurontin 100 mg three times a day, Norvasc 10 mg daily, Protonix 40 mg daily, Rocephin 1 g IV daily, Singulair 10 mg at bedtime, Solu-Medrol 40 mg IV every 12 hours. LABORATORY DATA: Shows hemoglobin 14.0, hematocrit 41.8, WBC 10.3, platelet is 673. Sodium 137, potassium 4.4, chloride 104, bicarbonate 22, BUN 14, creatinine 0.7, glucose 178, hemoglobin A1c is 6.5, iron is 43. LDH 78. TSH is 0.47. IMPRESSION AND PLAN: Sinusitis with laryngitis, chronic obstructive lung disease, may have sleep apnea syndrome, hypertension. I agree with Dr. Weathers with the present management.. Continue IV and inhaled bronchodilators, gastric prophylaxis and DVT prophylaxis. Has vague symptoms of numbness and neurology consult has been called. Out of bed to chair is possible. If does well by tomorrow, we will start tapering dose of steroid. We will follow with you. Denton Hays MD [facility] # [id number]
[2016-12-16] MEDS: Albuterol-Ipratrop 3 mg / 0.5 (3 ml) UD IH PRN (13:25)
[2016-12-16] MEDS: Fluticasone-Salmeterol 500-50mcg Diskus INH SCH ×2 (17:26→21:15)
--- NOTE | 2016-12-16 23:59 | CP.PCM.PN ---
Subjective - Date & Time of Evaluation Date of Evaluation: 12/16/16 Time of Evaluation: 11:00 - Subjective Subjective: This is a 61 year old female with PMHx COPD, HTN, Asthma who presented complaining of chest tightness. Associated symptoms include subjective fever, chills, dry cough. Patient has also been experiencing intermittent right sided numbness from the face down to the leg. Patient denies weakness, headaches. Objective - Vital Signs/Intake and Output Vital Signs (last 24 hours): Temp Pulse Resp BP Pulse Ox 98.3 F 109 H 18 114/75 98 12/16/16 16:00 12/16/16 16:00 12/16/16 16:00 12/16/16 16:00 12/16/16 16:00 - Medications Medications: Current Medications Albuterol/Ipratropium (Duoneb 3 Mg/0.5 Mg (3 Ml) Ud) 3 ml IH [id number] PRN PRN Reason: Shortness of Breath Last Admin: 12/16/16 13:25 Dose: 3 ml Amlodipine Besylate (Norvasc) 10 mg PO DAILY [facility] Last Admin: 12/16/16 11:05 Dose: 10 mg Atorvastatin Calcium (Lipitor) 40 mg PO DIN [facility] Last Admin: 12/16/16 17:25 Dose: 40 mg Benzocaine/Menthol (Cepacol Sore Throat) 1 hemal MT Q2H PRN PRN Reason: Sore Throat Last Admin: 12/15/16 20:06 Dose: 1 hemal Enoxaparin Sodium (Lovenox) 40 mg SC DAILY [facility] PRN Reason: Protocol Last Admin: 12/16/16 11:06 Dose: Not Given Gabapentin (Neurontin) 100 mg PO TID LE PRN Reason: Protocol Last Admin: 12/16/16 17:24 Dose: 100 mg Hydrochlorothiazide (Microzide) 12.5 mg PO DAILY [facility] Last Admin: 12/16/16 11:05 Dose: 12.5 mg Ceftriaxone Sodium (Rocephin 1 Gram Ivpb) 1 gm in 100 mls @ 100 mls/hr IVPB DAILY [facility] PRN Reason: Protocol Last Admin: 12/16/16 11:03 Dose: 100 mls/hr Losartan Potassium (Cozaar) 50 mg PO DAILY [facility] Last Admin: 12/16/16 11:05 Dose: 50 mg Methylprednisolone (Solu-Medrol) 20 mg IVP Q12 [facility] Last Admin: 12/16/16 21:15 Dose: 20 mg Montelukast Sodium (Singulair) 10 mg PO HS [facility] Last Admin: 12/16/16 21:19 Dose: Not Given Pantoprazole Sodium (Protonix Ec Tab) 40 mg PO 0600 [facility] Last Admin: 12/16/16 07:37 Dose: 40 mg Fluticasone/Salmeterol (Advair Diskus 500/50) 1 puff INH Q12 [facility] Last Admin: 12/16/16 21:15 Dose: 1 puff - Labs Labs: 12/16/16 06:55 PT 11.1 Seconds (9.9-11.8) 12/13/16 22:25 INR 1.03 (0.93-1.08) 12/13/16 22:25 APTT 28.2 Seconds (23.7-30.8) 12/13/16 22:25 - Constitutional Appears: Well - Head Exam Head Exam: ATRAUMATIC, NORMAL INSPECTION, NORMOCEPHALIC - Eye Exam Eye Exam: EOMI, Normal appearance, PERRL Pupil Exam: NORMAL ACCOMODATION, PERRL - ENT Exam ENT Exam: Mucous Membranes Moist, Normal Exam - Neck Exam Neck Exam: Full ROM, Normal Inspection. absent: Lymphadenopathy - Respiratory Exam Respiratory Exam: Clear to Ausculation Bilateral, NORMAL BREATHING PATTERN - Cardiovascular Exam Cardiovascular Exam: REGULAR RHYTHM, +S1, +S2. absent: Murmur - GI/Abdominal Exam GI & Abdominal Exam: Soft, Normal Bowel Sounds. absent: Tenderness - Rectal Exam Rectal Exam: NORMAL INSPECTION - Exam Exam: Circumcision, NORMAL INSPECTION External exam: NORMAL EXTERNAL EXAM Speculum exam: NORMAL SPECULUM EXAM Bimanual exam: NORMAL BIMANUAL EXAM - Extremities Exam Extremities Exam: Full ROM, Normal Capillary Refill, Normal Inspection. absent : Joint Swelling, Pedal Edema - Back Exam Back Exam: NORMAL INSPECTION - Neurological Exam Neurological Exam: Alert, Awake, CN II-XII Intact, Normal Gait, Oriented x3 - Psychiatric Exam Psychiatric exam: Normal Affect, Normal Mood - Skin Skin Exam: Dry, Intact, Normal Color, Warm Assessment and Plan (1) COPD (chronic obstructive pulmonary disease) Status: Acute (2) Chest pain Status: Acute (3) Abdominal pain Status: Acute (4) Abnormal renal function Status: Acute (5) Dyspnea Status: Acute (6) Fever Status: Acute (7) Influenza-like illness Status: Acute (8) Tachycardia Status: Acute - Assessment and Plan (Free Text) Assessment: Assessment: This is a 61 year old female with PMHx COPD, HTN, Asthma who presented complaining of chest tightness. Patient is intermittently experiencing paresthesias on the entire right side of her body. It is likely that hypertensive urgency is causing these paresthesias. No focal deficits on examination. Patient is iron deficient. Plan: 1) Maintain SBP between 130-140 mmHg. 2) Monitor and manage anemia. 3) Gabapentin 100 mg qHS for paresthesias. 4) Since patient cannot tolerate MRI, CT head without contrast 5) Since allergic to ASA, start Plavix 75 mg for stroke preVENTION OOB , PT ,OT
--- NOTE | 2016-12-17 00:20 | CP.PCM.PN ---
Subjective - Date & Time of Evaluation Date of Evaluation: 12/17/16 Time of Evaluation: 00:20 - Subjective Subjective: S:Requests a sleeping pill.Seen at bedside. States that she takes ambien sometimes at home for sleep which was prescribed to her by her former doctor. Has no other complaints now. Medical reocord was reviewed. O: Last Vital Signs 3 Temp 98.3 F 12/16/16 16:00 Pulse 109 H 12/16/16 16:00 Resp 18 12/16/16 16:00 BP 114/75 12/16/16 16:00 Pulse Ox 98 12/16/16 16:00 Awake, alert, not in distress. LUNGS:Normal breathing pattern. NEURO: Speech normal. A:Adjustment insomnia.. P:Ambien 5 mg PO now. Objective - Vital Signs/Intake and Output Vital Signs (last 24 hours): Temp Pulse Resp BP Pulse Ox 98.3 F 109 H 18 114/75 98 12/16/16 16:00 12/16/16 16:00 12/16/16 16:00 12/16/16 16:00 12/16/16 16:00 - Medications Medications: Current Medications Albuterol/Ipratropium (Duoneb 3 Mg/0.5 Mg (3 Ml) Ud) 3 ml IH [id number] PRN PRN Reason: Shortness of Breath Last Admin: 12/16/16 13:25 Dose: 3 ml Amlodipine Besylate (Norvasc) 10 mg PO DAILY [facility] Last Admin: 12/16/16 11:05 Dose: 10 mg Atorvastatin Calcium (Lipitor) 40 mg PO DIN [facility] Last Admin: 12/16/16 17:25 Dose: 40 mg Benzocaine/Menthol (Cepacol Sore Throat) 1 hemal MT Q2H PRN PRN Reason: Sore Throat Last Admin: 12/15/16 20:06 Dose: 1 hemal Enoxaparin Sodium (Lovenox) 40 mg SC DAILY [facility] PRN Reason: Protocol Last Admin: 12/16/16 11:06 Dose: Not Given Gabapentin (Neurontin) 100 mg PO TID LE PRN Reason: Protocol Last Admin: 12/16/16 17:24 Dose: 100 mg Hydrochlorothiazide (Microzide) 12.5 mg PO DAILY [facility] Last Admin: 12/16/16 11:05 Dose: 12.5 mg Ceftriaxone Sodium (Rocephin 1 Gram Ivpb) 1 gm in 100 mls @ 100 mls/hr IVPB DAILY [facility] PRN Reason: Protocol Last Admin: 12/16/16 11:03 Dose: 100 mls/hr Losartan Potassium (Cozaar) 50 mg PO DAILY [facility] Last Admin: 12/16/16 11:05 Dose: 50 mg Methylprednisolone (Solu-Medrol) 20 mg IVP Q12 [facility] Last Admin: 12/16/16 21:15 Dose: 20 mg Montelukast Sodium (Singulair) 10 mg PO HS [facility] Last Admin: 12/16/16 21:19 Dose: Not Given Pantoprazole Sodium (Protonix Ec Tab) 40 mg PO 0600 [facility] Last Admin: 12/16/16 07:37 Dose: 40 mg Fluticasone/Salmeterol (Advair Diskus 500/50) 1 puff INH Q12 [facility] Last Admin: 12/16/16 21:15 Dose: 1 puff - Labs Labs: 12/16/16 06:55 PT 11.1 Seconds (9.9-11.8) 12/13/16 22:25 INR 1.03 (0.93-1.08) 12/13/16 22:25 APTT 28.2 Seconds (23.7-30.8) 12/13/16 22:25
--- NOTE | 2016-12-17 02:15 | PN ---
DATE: 12/16/2016 Room 516 and bed 1. REASON FOR CONSULTATION: Follow up chest pain. HISTORY OF PRESENT ILLNESS: A 61-year-old female known for asthma, hypertension, shortness of breath and some tight feeling in the chest. Now, the patient is totally denying any chest pain and shortness of breath. She is feeling much better, however, she is still getting intermittent numbness on the right side of face and going up to the whole right side of the body for which neurology evaluation has been done. PHYSICAL EXAMINATION GENERAL: The patient is lying comfortably in bed without any respiratory distress. VITAL SIGNS: Blood pressure 114/75, respirations 18, pulse 91, temperature 98.3. HEENT: Head is normocephalic. Eyes; Pupils normal conjunctiva, normal nose and throat. NECK: Normal neck JVP. *------* normal. CARDIOPULMONARY: S1 and S2. LUNGS: Clear. ABDOMEN: Soft, nontender. No organomegaly. Bowel sounds normal. EXTREMITIES: No clubbing or cyanosis. LABORATORY DATA: WBC 21.5, hemoglobin 13.1, hematocrit 38.9, platelet 393. Sodium 137, potassium 4.4, BUN 14, creatinine 0.7, troponin less than 0.01, total CPK 78, triglycerides 48, cholesterol 261, LDL 213, HDL 37. Echocardiogram was done on 12/14/2016 normal LV size, mild concentric left ventricular hypertrophy, ejection fraction normal 55%, [id number] mitral regurgitation, tricuspid regurgitation, RVSP 21, *------*. IMPRESSION: Atypical chest pain most likely related to her asthma, chronic obstructive pulmonary disease, mild obesity, hypertension, borderline diabetes, numbness, intermittent numbness of the face and whole the right side of the body. PLAN: We will continue *------* 40 mg daily, Lovenox 40 mg subcu daily, hydrochlorothiazide 12.5 mg p.o. daily, Neurontin 100 mg t.i.d., amlodipine 10 mg daily. The patient is getting Solu-Medrol 40 mg IV q. 12 hours and losartan 50 daily. We will continue this therapy and we will do stress test as an outpatient. Mohammad Cunha, MD
[2016-12-17] MEDS: Pantoprazole 40 mg EC Tab PO SCH (06:15)
[2016-12-17 07:38] VITALS: RESP 20
[2016-12-17] MEDS: Fluticasone-Salmeterol 500-50mcg Diskus INH SCH ×2 (10:04→21:48)
[2016-12-17] MEDS: Enoxaparin 40 mg Syringe SC SCH (10:26)
[2016-12-17] MEDS: cefTRIAXone 1 gm 1 GM/100 ML BAG IVPB SCH (10:28)
[2016-12-17] MEDS: MethylPREDNISolone 40 mg Vial IVP SCH (10:29)
[2016-12-17] MEDS: Albuterol-Ipratrop 3 mg / 0.5 (3 ml) UD IH PRN (13:20)
--- NOTE | 2016-12-18 00:14 | PN ---
DATE: 12/17/2016 LOCATION: The patient in room 569, bed 1. REASON FOR CONSULTATION AND FOLLOWUP: Chest pain. SUBJECTIVE: The patient was admitted with shortness of breath and felt some tight feeling in the chest, which was probably related to her asthma. The patient then later on started complaining of intermittent numbness of the right side of the face and right side of the whole body. The patient now states that she has no pain, her shortness of breath is better, and her numbness on the right side is also improving. PHYSICAL EXAMINATION VITAL SIGNS: Blood pressure 152/80, respirations 20, pulse 104, temperature 97.7. HEENT: Head is normocephalic. Eyes, pupils normal. Conjunctivae normal. Nose and throat, normal. NECK: JVP low. Carotid equal. Thorax AP diameter normal. LUNGS: Clear. CARDIOVASCULAR: S1, S2. ABDOMEN: Soft and nontender. No organomegaly. Bowel sounds normal. EXTREMITIES: No clubbing. No cyanosis. WBC 21.5, hemoglobin 13.1, hematocrit 38.9, and platelet 393. Sodium 137, potassium 4.4, BUN 14, creatinine 0.7, troponin negative, cholesterol 261, triglyceride 213. DIAGNOSIS: Atypical chest pain, most likely related to her asthma, chronic obstructive pulmonary disease, mild obesity, hypertension, borderline diabetes, numbness intermittent on the right side of the face and right side of the body. PLAN: The patient is on hydrochlorothiazide 12.5 mg p.o. daily, Lovenox 40 mg subcu daily, Neurontin 100 mg t.i.d., amlodipine 10 mg daily, Singulair 10 mg at bedtime, Solu-Medrol 20 mg IV q.12 hours, Cozaar 50 daily, and Lipitor 40 daily. We will continue present therapy and we will do stress test as an outpatient. We will follow with you. Denton Cunha MD
--- NOTE | 2016-12-18 01:46 | PN ---
DATE: 12/17/2016 REFERRING PHYSICIAN: Dr. Weathers. SUBJECTIVE: She is lying in bed at 45 degrees, brother is at the bedside. Night was unremarkable, sinus pain is better, postnasal drip is better, cough and shortness of breath better. No nausea and vomiting. No diarrhea. Has a vague numbness from head to toe on the right side. Informed that CAT scan of her head has been negative, also Doppler studies unremarkable. PHYSICAL EXAMINATION: GENERAL: No acute distress. VITAL SIGNS: Temperature is 98, heart rate is 104, respiratory is 20, blood pressure 152/80 and pulse ox 98% on room air. HEENT: Moist mucous membranes. Carotid *------*. Mallampati score is IV. NECK: Supple. No JVD. CARDIOPULMONARY: Heart, S1 and S2. LUNGS: Has a few scattered rhonchi. ABDOMEN: Soft and nontender. No organomegaly. EXTREMITIES: There is no edema. NEUROLOGIC: Awake and alert. Follows simple commands. MEDICATIONS: She is on Advair 500/50 one puff twice a day, Cepacol lozenges q.2 hours p.r.n., Cozaar 50 mg daily, DuoNeb q.6 hours p.r.n., Lipitor 40 mg daily, Lovenox 40 mg daily, hydrochlorothiazide 12.5 mg daily, Neurontin 100 mg twice a day and Neurontin 300 mg at bedtime, Norvasc 10 mg daily, Plavix 75 mg daily, Protonix 40 mg daily, Rocephin 1 g daily, Singulair 10 mg daily, and Solu-Medrol 20 mg q.12 hours. LABORATORY DATA: Shows no new lab is available. IMPRESSION AND PLAN: Sinusitis with laryngitis, chronic obstructive lung disease, may have sleep apnea syndrome, hypertension with paraesthesia? I spoke to the patient and the brother at bedside. All the questions answered. We will discontinue Solu-Medrol, place on prednisone tapered dose, continue antibiotics, being followed by Neurology, outpatient PF and attended sleep study. We will add simvastatin for hyperlipidemia. We will follow with you. Denton Hays MD [facility] # [id number]
[2016-12-18] MEDS: Pantoprazole 40 mg EC Tab PO SCH (05:45)
[2016-12-18] MEDS: Fluticasone-Salmeterol 500-50mcg Diskus INH SCH ×2 (09:09→22:37)
[2016-12-18] MEDS: cefTRIAXone 1 gm 1 GM/100 ML BAG IVPB SCH (09:09)
[2016-12-18] MEDS: Enoxaparin 40 mg Syringe SC SCH (09:41)
--- NOTE | 2016-12-18 09:47 | PN ---
DATE: 12/16/2016 SUBJECTIVE: She is lying in the bed, head at 45-degree. Night was unremarkable. Feels better, decreased cough, decreased shortness of breath. Still has a waxing and waning numbness of the face and upper and lower extremities. CT of the head was unremarkable. No nausea, no vomiting, no diarrhea. No leg pain or leg swelling. OBJECTIVE: GENERAL: In no acute distress. VITAL SIGNS: Temperature is 98, heart rate is 109, respiratory rate is 18, blood pressure 114/75, pulse ox 98% on room air. HEENT: Moist mucous membranes. Crowded airway. Mallampati score is IV. NECK: Supple. No JVD. No more maxillary area tenderness. LUNGS: Fair airway with rhonchi. HEART: S1 and S2. ABDOMEN: Soft, nontender. No organomegaly. EXTREMITIES: There is no edema. NEUROLOGIC: Awake, alert, follows simple commands. MEDICATIONS: She is on Advair 500/50 mcg one puff twice a daily, Cepacol lozenges q. 12 hours p.r.n., Cozaar 50 mg daily, albuterol/Atrovent nebulizer q. 6 hours p.r.n., Lipitor 40 mg daily, Lovenox 40 mg daily, hydrochlorothiazide 12.5 mg daily, Neurontin 100 mg 3 times daily, Norvasc 10 mg daily, Protonix 40 mg daily, Rocephin 1 g daily, Singulair 10 mg daily, Solu-Medrol 40 mg q. 12 hours. LABORATORY DATA: Shows hemoglobin 13.1, hematocrit 38.9, WBC 22,000, platelets are 393. Her LDH 411. Creatine kinase is 60, troponin less than 0.01. Cholesterol is 231. CAT scan of the head was done yesterday which was unremarkable. IMPRESSION AND PLAN: Resolving sinusitis, acute bronchitis, chronic obstructive lung disease, may have sleep apnea syndrome, hypertension. We will decrease Solu-Medrol to 20 mg q. 12 hours. The patient was seen by neurology. Keep head elevated at 45 degrees. Continue antibiotics, gastric prophylaxis, DVT prophylaxis. Thank you and we will follow with you. Denton Hays MD [facility] # [id number]
--- NOTE | 2016-12-18 16:36 | CP.PCM.PN ---
<Pranav Wallis - Last Filed: 12/18/16 16:36> Subjective - Date & Time of Evaluation Date of Evaluation: 12/18/16 Time of Evaluation: 09:30 - Subjective Subjective: Neurology Progress Note for Dr. Mao's Service: CC: Right sided numbness Patient seen and examined this morning. Patient reports that episodes of right sided numbness exacerbated yesterday. Patient's Gabapentin was increased which helped to alleviate symptoms. Patient is asymptomatic this morning. Denies paresthesias, weakness, headaches. Objective - Vital Signs/Intake and Output Vital Signs (last 24 hours): Temp Pulse Resp BP Pulse Ox 98.2 F 75 20 135/79 98 12/18/16 07:36 12/18/16 07:36 12/18/16 07:36 12/18/16 09:10 12/18/16 07:36 Intake and Output: 12/18/16 12/18/16 06:59 18:59 Intake Total 780 780 Balance 780 780 - Medications Medications: Current Medications Albuterol/Ipratropium (Duoneb 3 Mg/0.5 Mg (3 Ml) Ud) 3 ml IH [id number] PRN PRN Reason: Shortness of Breath Last Admin: 12/17/16 13:20 Dose: 3 ml Amlodipine Besylate (Norvasc) 10 mg PO DAILY [facility] Last Admin: 12/18/16 09:10 Dose: 10 mg Atorvastatin Calcium (Lipitor) 40 mg PO DIN [facility] Last Admin: 12/17/16 16:25 Dose: 40 mg Benzocaine/Menthol (Cepacol Sore Throat) 1 hemal MT Q2H PRN PRN Reason: Sore Throat Last Admin: 12/15/16 20:06 Dose: 1 hemal Clopidogrel Bisulfate (Plavix) 75 mg PO DAILY [facility] Last Admin: 12/18/16 10:00 Dose: Not Given Enoxaparin Sodium (Lovenox) 40 mg SC DAILY [facility] PRN Reason: Protocol Last Admin: 12/18/16 09:41 Dose: Not Given Gabapentin (Neurontin) 300 mg PO HS [facility] PRN Reason: Protocol Last Admin: 12/17/16 21:48 Dose: 300 mg Gabapentin (Neurontin) 100 mg PO 1000,1600 [facility] PRN Reason: Protocol Last Admin: 12/18/16 09:10 Dose: 100 mg Hydrochlorothiazide (Microzide) 12.5 mg PO DAILY [facility] Last Admin: 12/18/16 09:10 Dose: 12.5 mg Ceftriaxone Sodium (Rocephin 1 Gram Ivpb) 1 gm in 100 mls @ 100 mls/hr IVPB DAILY [facility] PRN Reason: Protocol Last Admin: 12/18/16 09:09 Dose: 100 mls/hr Losartan Potassium (Cozaar) 50 mg PO DAILY [facility] Last Admin: 12/18/16 09:10 Dose: 50 mg Montelukast Sodium (Singulair) 10 mg PO HS [facility] Last Admin: 12/17/16 21:48 Dose: Not Given Pantoprazole Sodium (Protonix Ec Tab) 40 mg PO 0600 [facility] Last Admin: 12/18/16 05:45 Dose: 40 mg Prednisone (Prednisone Tab) 20 mg PO DAILY [facility] Last Admin: 12/18/16 10:00 Dose: Not Given Fluticasone/Salmeterol (Advair Diskus 500/50) 1 puff INH Q12 [facility] Last Admin: 12/18/16 09:09 Dose: 1 puff - Labs Labs: 12/16/16 06:55 PT 11.1 Seconds (9.9-11.8) 12/13/16 22:25 INR 1.03 (0.93-1.08) 12/13/16 22:25 APTT 28.2 Seconds (23.7-30.8) 12/13/16 22:25 - Constitutional Appears: Non-toxic, No Acute Distress - Head Exam Head Exam: ATRAUMATIC, NORMAL INSPECTION, NORMOCEPHALIC - Eye Exam Eye Exam: EOMI, PERRL - ENT Exam ENT Exam: Mucous Membranes Moist - Respiratory Exam Respiratory Exam: Clear to Ausculation Bilateral - Cardiovascular Exam Cardiovascular Exam: REGULAR RHYTHM - GI/Abdominal Exam GI & Abdominal Exam: Normal Bowel Sounds - Neurological Exam Neurological Exam: Alert, Awake, CN II-XII Intact, Oriented x3, Reflexes Normal Additional comments: No pronator drift. Sensations intact throughout. Muscle strength 5/5 throughout. Assessment and Plan - Assessment and Plan (Free Text) Assessment: This is a 61 year old female with PMHx COPD, HTN, Asthma who presented complaining of chest tightness. Patient is intermittently experiencing paresthesias on the entire right side of her body. It is likely that hypertensive urgency is causing these paresthesias. No focal deficits on examination. Patient is iron deficient. CT head did not show acute ischemic, hemorrhagic, or mass effect pathologies. Echocardiogram revealed 75% EF. Carotid ultrasound revealed 40-59% Right ICA stenosis and 20-39% Left ICA stenosis. Plan: 1) Maintain SBP between 130-140 mmHg. 2) Monitor and manage anemia. 3) Gabapentin 400 mg qHS for paresthesias. 4) Allergy to ASA, therefore Plavix 75 mg for stroke prevention 5) Medical management for carotid artery stenosis Patient is neurologically stable Case discussed with Dr. Mayco Wallis, PGY-1 <Margarito Mao - Last Filed: 12/18/16 16:45> Objective - Vital Signs/Intake and Output Vital Signs (last 24 hours): Temp Pulse Resp BP Pulse Ox 97.9 F 99 H 20 127/77 96 12/18/16 16:00 12/18/16 16:00 12/18/16 16:00 12/18/16 16:00 12/18/16 16:00 Intake and Output: 12/18/16 12/18/16 06:59 18:59 Intake Total 780 780 Balance 780 780 - Medications Medications: Current Medications Albuterol/Ipratropium (Duoneb 3 Mg/0.5 Mg (3 Ml) Ud) 3 ml IH [id number] PRN PRN Reason: Shortness of Breath Last Admin: 12/17/16 13:20 Dose: 3 ml Amlodipine Besylate (Norvasc) 10 mg PO DAILY [facility] Last Admin: 12/18/16 09:10 Dose: 10 mg Atorvastatin Calcium (Lipitor) 40 mg PO DIN [facility] Last Admin: 12/17/16 16:25 Dose: 40 mg Benzocaine/Menthol (Cepacol Sore Throat) 1 hemal MT Q2H PRN PRN Reason: Sore Throat Last Admin: 12/15/16 20:06 Dose: 1 hemal Clopidogrel Bisulfate (Plavix) 75 mg PO DAILY [facility] Last Admin: 12/18/16 10:00 Dose: Not Given Enoxaparin Sodium (Lovenox) 40 mg SC DAILY [facility] PRN Reason: Protocol Last Admin: 12/18/16 09:41 Dose: Not Given Gabapentin (Neurontin) 300 mg PO [facility] PRN Reason: Protocol Last Admin: 12/17/16 21:48 Dose: 300 mg Gabapentin (Neurontin) 100 mg PO 1000,1600 [facility] PRN Reason: Protocol Last Admin: 12/18/16 09:10 Dose: 100 mg Hydrochlorothiazide (Microzide) 12.5 mg PO DAILY [facility] Last Admin: 12/18/16 09:10 Dose: 12.5 mg Ceftriaxone Sodium (Rocephin 1 Gram Ivpb) 1 gm in 100 mls @ 100 mls/hr IVPB DAILY [facility] PRN Reason: Protocol Last Admin: 12/18/16 09:09 Dose: 100 mls/hr Losartan Potassium (Cozaar) 50 mg PO DAILY [facility] Last Admin: 12/18/16 09:10 Dose: 50 mg Montelukast Sodium (Singulair) 10 mg PO HS [facility] Last Admin: 12/17/16 21:48 Dose: Not Given Pantoprazole Sodium (Protonix Ec Tab) 40 mg PO 0600 [facility] Last Admin: 12/18/16 05:45 Dose: 40 mg Prednisone (Prednisone Tab) 20 mg PO DAILY [facility] Last Admin: 12/18/16 10:00 Dose: Not Given Fluticasone/Salmeterol (Advair Diskus 500/50) 1 puff INH Q12 [facility] Last Admin: 12/18/16 09:09 Dose: 1 puff - Labs Labs: 12/16/16 06:55 PT 11.1 Seconds (9.9-11.8) 12/13/16 22:25 INR 1.03 (0.93-1.08) 12/13/16 22:25 APTT 28.2 Seconds (23.7-30.8) 12/13/16 22:25 Attending/Attestation - Attestation I have personally seen and examined this patient.: Yes I have fully participated in the care of the patient.: Yes I have reviewed all pertinent clinical information, including history, physical exam and plan: Yes
--- NOTE | 2016-12-18 22:36 | CP.PCM.PN ---
Subjective - Date & Time of Evaluation Date of Evaluation: 12/18/16 Time of Evaluation: 10:00 - Subjective Subjective: Patient seen and examined this morning. Patient reports that episodes of right sided numbness exacerbated yesterday. Patient's Gabapentin was increased which helped to alleviate symptoms. Patient is asymptomatic this morning. Denies paresthesias, weakness, headachespt family was sitting on the bed side , she is feeling better , pt av, ordered Objective - Vital Signs/Intake and Output Vital Signs (last 24 hours): Temp Pulse Resp BP Pulse Ox 97.9 F 99 H 20 127/77 96 12/18/16 16:00 12/18/16 16:00 12/18/16 16:00 12/18/16 16:00 12/18/16 16:00 Intake and Output: 12/18/16 12/19/16 18:59 06:59 Intake Total 780 940 Balance 780 940 - Medications Medications: Current Medications Albuterol/Ipratropium (Duoneb 3 Mg/0.5 Mg (3 Ml) Ud) 3 ml IH [id number] PRN PRN Reason: Shortness of Breath Last Admin: 12/17/16 13:20 Dose: 3 ml Amlodipine Besylate (Norvasc) 10 mg PO DAILY [facility] Last Admin: 12/18/16 09:10 Dose: 10 mg Atorvastatin Calcium (Lipitor) 40 mg PO DIN [facility] Last Admin: 12/18/16 17:51 Dose: Not Given Benzocaine/Menthol (Cepacol Sore Throat) 1 hemal MT Q2H PRN PRN Reason: Sore Throat Last Admin: 12/15/16 20:06 Dose: 1 hemal Clopidogrel Bisulfate (Plavix) 75 mg PO DAILY [facility] Last Admin: 12/18/16 10:00 Dose: Not Given Enoxaparin Sodium (Lovenox) 40 mg SC DAILY [facility] PRN Reason: Protocol Last Admin: 12/18/16 09:41 Dose: Not Given Gabapentin (Neurontin) 300 mg PO HS [facility] PRN Reason: Protocol Last Admin: 12/17/16 21:48 Dose: 300 mg Gabapentin (Neurontin) 100 mg PO 1000,1600 [facility] PRN Reason: Protocol Last Admin: 12/18/16 17:49 Dose: 100 mg Hydrochlorothiazide (Microzide) 12.5 mg PO DAILY [facility] Last Admin: 12/18/16 09:10 Dose: 12.5 mg Ceftriaxone Sodium (Rocephin 1 Gram Ivpb) 1 gm in 100 mls @ 100 mls/hr IVPB DAILY [facility] PRN Reason: Protocol Last Admin: 12/18/16 09:09 Dose: 100 mls/hr Losartan Potassium (Cozaar) 50 mg PO DAILY [facility] Last Admin: 12/18/16 09:10 Dose: 50 mg Montelukast Sodium (Singulair) 10 mg PO HS [facility] Last Admin: 12/17/16 21:48 Dose: Not Given Pantoprazole Sodium (Protonix Ec Tab) 40 mg PO 0600 [facility] Last Admin: 12/18/16 05:45 Dose: 40 mg Prednisone (Prednisone Tab) 20 mg PO DAILY [facility] Last Admin: 12/18/16 10:00 Dose: Not Given Fluticasone/Salmeterol (Advair Diskus 500/50) 1 puff INH Q12 [facility] Last Admin: 12/18/16 09:09 Dose: 1 puff - Labs Labs: 12/16/16 06:55 PT 11.1 Seconds (9.9-11.8) 12/13/16 22:25 INR 1.03 (0.93-1.08) 12/13/16 22:25 APTT 28.2 Seconds (23.7-30.8) 12/13/16 22:25 - Constitutional Appears: Well - Head Exam Head Exam: ATRAUMATIC, NORMAL INSPECTION, NORMOCEPHALIC - Eye Exam Eye Exam: EOMI, Normal appearance, PERRL Pupil Exam: NORMAL ACCOMODATION, PERRL - ENT Exam ENT Exam: Mucous Membranes Moist, Normal Exam - Neck Exam Neck Exam: Full ROM, Normal Inspection. absent: Lymphadenopathy - Respiratory Exam Respiratory Exam: Clear to Ausculation Bilateral, NORMAL BREATHING PATTERN - Cardiovascular Exam Cardiovascular Exam: REGULAR RHYTHM, +S1, +S2. absent: Murmur - GI/Abdominal Exam GI & Abdominal Exam: Soft, Normal Bowel Sounds. absent: Tenderness - Extremities Exam Extremities Exam: Full ROM, Normal Capillary Refill, Normal Inspection. absent : Joint Swelling, Pedal Edema - Back Exam Back Exam: NORMAL INSPECTION - Neurological Exam Neurological Exam: Alert, Awake, CN II-XII Intact, Normal Gait, Oriented x3 - Psychiatric Exam Psychiatric exam: Normal Affect, Normal Mood - Skin Skin Exam: Dry, Intact, Normal Color, Warm Assessment and Plan (1) COPD (chronic obstructive pulmonary disease) Status: Acute (2) Chest pain Status: Acute (3) Abdominal pain Status: Acute (4) Abnormal renal function Status: Acute (5) Dyspnea Status: Acute (6) Fever Status: Acute (7) Influenza-like illness Status: Acute (8) Tachycardia Status: Acute - Assessment and Plan (Free Text) Assessment: This is a 61 year old female with PMHx COPD, HTN, Asthma who presented complaining of chest tightness. Patient is intermittently experiencing paresthesias on the entire right side of her body. It is likely that hypertensive urgency is causing these paresthesias. No focal deficits on examination. Patient is iron deficient. CT head did not show acute ischemic, hemorrhagic, or mass effect pathologies. Echocardiogram revealed 75% EF. Carotid ultrasound revealed 40-59% Right ICA stenosis and 20-39% Left ICA stenosis. Plan: 1) Maintain SBP between 130-140 mmHg. 2) Monitor and manage anemia. 3) Gabapentin 400 mg qHS for paresthesias. 4) Allergy to ASA, therefore Plavix 75 mg for stroke prevention 5) Medical management for carotid artery stenosis pt aval. , d/d with family all questions answered
--- NOTE | 2016-12-19 00:11 | CP.PCM.PN ---
Subjective - Date & Time of Evaluation Date of Evaluation: 12/17/16 Time of Evaluation: 11:00 - Subjective Subjective: This is a 61 year old female with PMHx COPD, HTN, Asthma who presented complaining of chest tightness. Associated symptoms include subjective fever, chills, dry cough. Patient has also been experiencing intermittent right sided numbness from the face down to the leg. Patient denies weakness, headac Objective - Vital Signs/Intake and Output Vital Signs (last 24 hours): Temp Pulse Resp BP Pulse Ox 97.9 F 99 H 20 127/77 96 12/18/16 16:00 12/18/16 16:00 12/18/16 16:00 12/18/16 16:00 12/18/16 16:00 Intake and Output: 12/18/16 12/19/16 18:59 06:59 Intake Total 780 940 Balance 780 940 - Medications Medications: Current Medications Albuterol/Ipratropium (Duoneb 3 Mg/0.5 Mg (3 Ml) Ud) 3 ml IH [id number] PRN PRN Reason: Shortness of Breath Last Admin: 12/17/16 13:20 Dose: 3 ml Amlodipine Besylate (Norvasc) 10 mg PO DAILY [facility] Last Admin: 12/18/16 09:10 Dose: 10 mg Atorvastatin Calcium (Lipitor) 40 mg PO DIN [facility] Last Admin: 12/18/16 17:51 Dose: Not Given Benzocaine/Menthol (Cepacol Sore Throat) 1 hemal MT Q2H PRN PRN Reason: Sore Throat Last Admin: 12/15/16 20:06 Dose: 1 hemal Clopidogrel Bisulfate (Plavix) 75 mg PO DAILY [facility] Last Admin: 12/18/16 10:00 Dose: Not Given Enoxaparin Sodium (Lovenox) 40 mg SC DAILY [facility] PRN Reason: Protocol Last Admin: 12/18/16 09:41 Dose: Not Given Fenofibrate (Tricor) 145 mg PO DAILY [facility] Gabapentin (Neurontin) 300 mg PO HS [facility] PRN Reason: Protocol Last Admin: 12/18/16 22:37 Dose: 300 mg Gabapentin (Neurontin) 100 mg PO 1000,1600 [facility] PRN Reason: Protocol Last Admin: 12/18/16 17:49 Dose: 100 mg Hydrochlorothiazide (Microzide) 12.5 mg PO DAILY [facility] Last Admin: 12/18/16 09:10 Dose: 12.5 mg Ceftriaxone Sodium (Rocephin 1 Gram Ivpb) 1 gm in 100 mls @ 100 mls/hr IVPB DAILY [facility] PRN Reason: Protocol Last Admin: 12/18/16 09:09 Dose: 100 mls/hr Losartan Potassium (Cozaar) 50 mg PO DAILY [facility] Last Admin: 12/18/16 09:10 Dose: 50 mg Montelukast Sodium (Singulair) 10 mg PO HS [facility] Last Admin: 12/18/16 22:37 Dose: Not Given Pantoprazole Sodium (Protonix Ec Tab) 40 mg PO 0600 [facility] Last Admin: 12/18/16 05:45 Dose: 40 mg Prednisone (Prednisone Tab) 20 mg PO DAILY [facility] Last Admin: 12/18/16 10:00 Dose: Not Given Fluticasone/Salmeterol (Advair Diskus 500/50) 1 puff INH Q12 [facility] Last Admin: 12/18/16 22:37 Dose: 1 puff - Labs Labs: 12/16/16 06:55 PT 11.1 Seconds (9.9-11.8) 12/13/16 22:25 INR 1.03 (0.93-1.08) 12/13/16 22:25 APTT 28.2 Seconds (23.7-30.8) 12/13/16 22:25 - Constitutional Appears: Well - Head Exam Head Exam: ATRAUMATIC, NORMAL INSPECTION, NORMOCEPHALIC - Eye Exam Eye Exam: EOMI, Normal appearance, PERRL Pupil Exam: NORMAL ACCOMODATION, PERRL - ENT Exam ENT Exam: Mucous Membranes Moist, Normal Exam - Neck Exam Neck Exam: absent: Full ROM, Lymphadenopathy, Meningismus, Normal Inspection, Tenderness, Thyromegaly - Respiratory Exam Respiratory Exam: Prolonged Expiratory Phase - Cardiovascular Exam Cardiovascular Exam: REGULAR RHYTHM, +S1, +S2. absent: Murmur - GI/Abdominal Exam GI & Abdominal Exam: Soft, Normal Bowel Sounds. absent: Tenderness - Back Exam Back Exam: NORMAL INSPECTION - Neurological Exam Neurological Exam: Alert, Awake, CN II-XII Intact, Normal Gait, Oriented x3 - Psychiatric Exam Psychiatric exam: Normal Affect, Normal Mood - Skin Skin Exam: Dry, Intact, Normal Color, Warm Assessment and Plan (1) COPD (chronic obstructive pulmonary disease) Status: Acute (2) Chest pain Status: Acute (3) Abdominal pain Status: Acute (4) Abnormal renal function Status: Acute (5) Dyspnea Status: Acute (6) Fever Status: Acute (7) Influenza-like illness Status: Acute (8) Tachycardia Status: Acute - Assessment and Plan (Free Text) Assessment: This is a 61 year old female with PMHx COPD, HTN, Asthma who presented complaining of chest tightness. Patient is intermittently experiencing paresthesias on the entire right side of her body. It is likely that hypertensive urgency is causing these paresthesias. No focal deficits on examination. Patient is iron deficient. Plan: 1) Maintain SBP between 130-140 mmHg. 2) Monitor and manage anemia. 3) Gabapentin 100 mg qHS for paresthesias. 4) Since patient cannot tolerate MRI, CT head without contrast 5) Since allergic to ASA, start Plavix 75 mg for stroke preVENTION OOB , PT ,OT
--- NOTE | 2016-12-19 01:10 | PN ---
DATE: 12/18/2016 ROOM: 569. BED: 1. REASON FOR CONSULTATION: Chest pain. SUBJECTIVE: The patient was admitted to the hospital with shortness of breath and chest pain with tightness. The patient's chest pain and shortness of breath are better now, but she is getting still episodes of numbness on the right side. PHYSICAL EXAMINATION: VITAL SIGNS: Blood pressure 135/79, respiratory rate 20, pulse 75 and temperature 98.2. HEENT: Head is normocephalic. Eyes; pupils are normal. Conjunctivae normal. Nose and throat normal. NECK: JVP low. Carotid equal. Thorax AP diameter normal. LUNGS: Clear. CARDIOVASCULAR: S1 and S2. ABDOMEN: Soft, and nontender. No organomegaly. Bowel sound normal. EXTREMITIES: No clubbing. No cyanosis. LABORATORY DATA: WBC 21.5, hemoglobin 13.1, hematocrit 38.9, platelet 393. Sodium 137, potassium 4.4, BUN 14 and creatinine 0.7. Troponin x2 negative. TSH is normal. Cholesterol 261 and LDL 213. DIAGNOSES: Chest pain and shortness of breath, probably chest pain related to her asthma. Chronic obstructive pulmonary disease, mild obesity, hypertension, borderline diabetes mellitus, intermittent numbness of the right side of the body. PLAN: The patient already had echo and since the patient is getting numbness off and on, on the right side, we will defer the stress test as an outpatient, nuclear stress test, and meantime we will continue present therapy, losartan 50 daily, Lipitor 40 daily, Lovenox 40 mg subcutaneous daily, hydrochlorothiazide 12.5 mg daily, gabapentin 300 mg at bedtime, gabapentin 100 mg p.o. in the morning and afternoon, amlodipine 10 mg daily, Plavix 75 mg daily, *------* 120 mg daily, Protonix 40 daily, Rocephin 1 g daily, and Singular 10 mg at bedtime. We will continue present therapy and we will arrange a stress test outpatient when her symptom of numbness on right side of body is improved. Denton Cunha MD
--- NOTE | 2016-12-19 03:05 | PN ---
DATE: 12/18/2016 PULMONARY PROGRESS NOTE ATTENDING PHYSICIAN: Dr. Weathers. SUBJECTIVE: She is lying in the bed, head 45 degrees, friends are at bedside. *------* was unremarkable. Pulmonary point of view, she is doing better. Decreased cough, decreased shortness of breath. No nausea, no vomiting. No leg pain or no leg swelling. Still complaining about some vague numbness starting from the head to toe on the right side. The patient is being followed by Neurology. OBJECTIVE: GENERAL: In no acute distress. VITAL SIGNS: Temperature is 98, heart rate is 99, respiratory rate is 20, blood pressure 127/77, and pulse ox 96% on room air. HEENT: Moist mucous membranes. Crowded airway. Mallampati score is 4. NECK: Supple. No JVD. LUNGS: Fair airflow with rhonchi. HEART: S1 and S2. ABDOMEN: Soft. Nontender. No organomegaly. EXTREMITIES: There is no edema. NEUROLOGIC: Awake, alert, and follow simple commands. MEDICATIONS: She is on Advair 500/50 one puff twice daily, Cepacol lozenges q.2 hours p.r.n., Cozaar 50 mg daily, DuoNeb q.6 hours p.r.n., Lipitor 40 mg daily, Lovenox 40 mg subcu daily, hydrochlorothiazide 12.5 mg daily, Neurontin 300 mg at bedtime and 100 mg twice a day, Norvasc 10 mg daily, Plavix 75 mg daily, prednisone as a taper dose 20 mg daily, Protonix 40 mg daily, Rocephin 1 g IV daily, Singulair 10 mg daily. LABORATORY DATA: Reviewed and shows no new lab is available. IMPRESSION AND PLAN: Status post sinusitis and laryngitis, chronic obstructive lung disease, sleep apnea syndrome, hypertension, right-sided some numbness. Neurology note reviewed. According to neurology note, the patient has normal neurological examination. Pulmonary point of view, she is doing well. She could be discharged home on tapered dose of prednisone and antibiotics. Outpatient PFT, unattended sleep study. Thank you and we will follow with you. Denton Hays MD [facility] # [id number]
[2016-12-19] MEDS: Pantoprazole 40 mg EC Tab PO SCH (06:27)
[2016-12-19 08:37] VITALS: BP 105/54; PULSE 69; TEMP 98.2; O2SAT 97
[2016-12-19] MEDS: Fluticasone-Salmeterol 500-50mcg Diskus INH SCH (10:01)
[2016-12-19] MEDS: Enoxaparin 40 mg Syringe SC SCH (10:02)
[2016-12-19] MEDS: cefTRIAXone 1 gm 1 GM/100 ML BAG IVPB SCH (10:02)
--- NOTE | 2016-12-19 18:42 | PN ---
DATE: 12/19/2016 REASON FOR CONSULTATION: Follow up chest pain, cardiac evaluation. SUBJECTIVE: The patient is a 51-year-old female. The patient denies any chest pain, denies any shortness of breath, complains of mild wheezing. PHYSICAL EXAMINATION: As follows; VITAL SIGNS: Temperature afebrile, heart rate 59, blood pressure 104/54. HEENT: PERRLA. Extraocular muscles intact. NECK: Supple. No carotid bruit or thyromegaly. CHEST: Clear to auscultation. HEART: S1 and S2, regular. ABDOMEN: Soft. EXTREMITIES: Clubbing and cyanosis negative. LABORATORY DATA: Blood workup as follows; WBC 21.5, hemoglobin 13.1, hematocrit 38.9, platelet count 393. Chemistry show sodium of 137, potassium 4.4, chloride 104, carbon dioxide 22, anion gap of 15, BUN 14, creatinine 0.7. Troponin 0.01. Cholesterol 261, LDL 213, HDL 37, TSH 0.47. The patient had an echocardiography done on 12/14/2016 that showed ejection fraction 55%, [id number] mitral regurgitation, trace tricuspid regurgitation, systolic pressure of 21. IMPRESSION: A 61-year-old female with past medical history of chronic obstructive pulmonary disease, admitted with atypical chest pain, so far troponin is negative. No evidence of acute myocardial infarction. No evidence of unstable angina. History of chronic obstructive pulmonary disease, obesity, hypertension, hyperlipidemia, and diabetes. RECOMMENDATION: Aggressive treatment for COPD, continue antihypertensive medication, continue DVT prophylaxis, continue losartan, continue amlodipine for hypertension. The patient will schedule stress test as an outpatient because of underling comorbidity of her coronary artery disease, discuss with the patient. We will follow with you. Thank you Dr. Weathers for the opportunity in taking of Lottie Wong. Denton Gonzalez MD
[2016-12-19] MEDS ORDERED: Amoxicillin-Clav 875-125 mg Tab PO SCH (22:00)
--- NOTE | 2016-12-19 22:16 | CP.PCM.DIS ---
Provider - Provider Date of Admission: 12/15/16 19:41 Attending physician: Kathe Weathers MD Primary care physician: NO FAMILY PROVIDER Time Spent in preparation of Discharge (in minutes): 50 Diagnosis - Discharge Diagnosis (1) COPD (chronic obstructive pulmonary disease) Status: Acute (2) Chest pain Status: Acute (3) Abdominal pain Status: Acute (4) Abnormal renal function Status: Acute (5) Dyspnea Status: Acute (6) Fever Status: Acute (7) Influenza-like illness Status: Acute (8) Tachycardia Status: Acute (9) Bronchitis Status: Acute Hospital Course - Lab Results Lab Results: Most Recent Lab Values WBC 21.5 10^3/ul (4.5-11.0) H D 12/16/16 06:55 RBC 4.56 10^6/uL (3.5-6.1) 12/16/16 06:55 Hgb 13.1 gm/dL (12.0-16.0) 12/16/16 06:55 Hct 38.9 % (36.0-48.0) 12/16/16 06:55 MCV 85.3 fL (80.0-105.0) 12/16/16 06:55 MCH 28.7 pg (25.0-35.0) 12/16/16 06:55 MCHC 33.7 g/dl (31.0-37.0) 12/16/16 06:55 RDW 13.6 % (11.5-14.5) 12/16/16 06:55 Plt Count 393 10^3/uL (120.0-450.0) 12/16/16 06:55 MPV 9.2 fl (7.0-11.0) 12/16/16 06:55 Gran % 74.1 % (50.0-68.0) H 12/14/16 08:00 Lymph % (Auto) 18.1 % (22.0-35.0) L 12/14/16 08:00 [place] % (Auto) 5.2 % (1.0-6.0) 12/14/16 08:00 Eos % (Auto) 2.0 % (1.5-5.0) 12/14/16 08:00 Baso % (Auto) 0.6 % (0.0-3.0) 12/14/16 08:00 Gran # 6.62 (1.4-6.5) H 12/14/16 08:00 Lymph # 1.6 (1.2-3.4) 12/14/16 08:00 [place] # 0.5 (0.1-0.6) 12/14/16 08:00 Eos # 0.2 (0.0-0.7) 12/14/16 08:00 Baso # 0.05 K/mm3 (0.0-2.0) 12/14/16 08:00 PT 11.1 Seconds (9.9-11.8) 12/13/16 22:25 INR 1.03 (0.93-1.08) 12/13/16 22:25 APTT 28.2 Seconds (23.7-30.8) 12/13/16 22:25 Sodium 137 mmol/L (132-148) 12/15/16 07:30 Potassium 4.4 mmol/L (3.6-5.0) 12/15/16 07:30 Chloride 104 mmol/L (98-107) 12/15/16 07:30 Carbon Dioxide 22 mmol/L (21-33) 12/15/16 07:30 Anion Gap 15 (10-20) 12/15/16 07:30 BUN 14 mg/dL (7-21) 12/15/16 07:30 Creatinine 0.7 mg/dL (0.5-1.4) 12/15/16 07:30 Est GFR ( Amer) > 60 12/15/16 07:30 Est GFR (Non-Af Amer) > 60 12/15/16 07:30 Random Glucose 178 mg/dL (70-110) H 12/15/16 07:30 Hemoglobin A1c 6.5 % (4.2-6.5) 12/15/16 07:30 Calcium 9.9 mg/dL (8.4-10.5) 12/15/16 07:30 Iron 43 ug/dL (45-180) L 12/15/16 07:30 TIBC 290 ug/dL (265-497) 12/15/16 07:30 % Saturation 15 % (20-55) L 12/15/16 07:30 Total Bilirubin 0.9 mg/dL (0.2-1.3) 12/14/16 08:00 AST 19 U/L (15-39) 12/14/16 08:00 ALT 25 U/L (7-56) 12/14/16 08:00 Alkaline Phosphatase 160 U/L (38-133) H 12/14/16 08:00 Lactate Dehydrogenase 411 U/L (333-699) 12/16/16 06:55 Total Creatine Kinase 60 U/L (35-230) 12/16/16 06:55 Troponin I < 0.01 ng/mL 12/16/16 06:55 Total Protein 8.1 g/dL (5.8-8.3) 12/14/16 08:00 Albumin 3.9 g/dL (3.0-4.8) 12/14/16 08:00 Globulin 4.2 gm/dL 12/14/16 08:00 Albumin/Globulin Ratio 0.9 (1.1-1.8) L 12/14/16 08:00 Triglycerides 48 mg/dL (35-160) 12/15/16 07:30 Cholesterol 261 mg/dL (130-200) H 12/15/16 07:30 LDL Cholesterol Direct 213 mg/dL (0-129) H 12/15/16 07:30 HDL Cholesterol 37 mg/dL (29-60) 12/15/16 07:30 Vitamin B12 509 pg/mL (239-931) 12/15/16 07:30 Folate 8.0 ng/mL 12/15/16 07:30 TSH 3rd Generation 0.47 mIU/mL (0.46-4.68) 12/15/16 07:30 - Hospital Course Hospital Course: Lottie Wong is a 61 year old female, whose past medical history includes COPD, hypertension, asthma, and is a former smoker, presents to the emergency department complaining of chest tightness. She reports she developed chest tightness tonight and notes she has been experiencing subjective fever, chills, and dry cough for the past week. Patient states she has took [id number] medication with no significant relief. Patient denies shortness of breath, headache, nausea, vomiting, diarrhea, diaphoresis, jaw pain, back pain, lower extremity pain/swelling, or other complaints. Patient is intermittently experiencing paresthesias on the entire right side of her body. It is likely that hypertensive urgency is causing these paresthesias. No focal deficits on examination. Patient is iron deficient. CT head did not show acute ischemic, hemorrhagic, or mass effect pathologies. Echocardiogram revealed 75% EF. Carotid ultrasound revealed 40-59% Right ICA stenosis and 20-39% Left ICA stenosis. Plan: 1) Maintain SBP between 130-140 mmHg. 2) Monitor and manage anemia. 3) Gabapentin 400 mg qHS for paresthesias. 4) Allergy to ASA, therefore Plavix 75 mg for stroke prevention 5) Medical management for carotid artery stenosis pt is seen by robi. cardio. and pul . dc home with f/u pcp . meds pres, given by Evangelina CHEMIST Discharge Exam - Head Exam Head Exam: ATRAUMATIC, NORMAL INSPECTION, NORMOCEPHALIC - Eye Exam Eye Exam: EOMI, Normal appearance, PERRL Pupil Exam: NORMAL ACCOMODATION, PERRL - ENT Exam ENT Exam: Normal Oropharynx - Neck Exam Neck exam: Full Rom, Normal Inspection - Respiratory Exam Respiratory Exam: Clear to PA & Lateral - Cardiovascular Exam Cardiovascular Exam: +S1, +S2 - GI/Abdominal Exam GI & Abdominal Exam: Normal Bowel Sounds - Rectal Exam Rectal Exam: NORMAL INSPECTION - Exam Exam: Circumcision, NORMAL INSPECTION External exam: NORMAL EXTERNAL EXAM Speculum exam: NORMAL SPECULUM EXAM Bimanual exam: NORMAL BIMANUAL EXAM - Back Exam Back exam: NORMAL INSPECTION - Neurological Exam Neurological exam: Alert, CN II-XII Intact, Normal Gait, Oriented x3, Reflexes Normal - Psychiatric Exam Psychiatric exam: Normal Affect, Normal Mood - Skin Skin Exam: Dry, Intact, Normal Color, Warm Discharge Plan - Discharge Medications Prescriptions: Fluticasone/Salmeterol 500/50 [Advair Diskus 500/50] 1 puff INH Q12 #1 puff Amoxicillin/Clavulanate [Augmentin 875 MG-125 MG Tab] 1 tab PO Q12 #10 tab Losartan [Cozaar] 50 mg PO DAILY #30 tab Albuterol/Ipratropium [Duoneb 3 mg/0.5 mg (3 ml) UD] 3 ml IH [id number] PRN #30 PRN Reason: Shortness Of Breath Atorvastatin [Lipitor] 40 mg PO DIN #30 tab hydroCHLOROthiazide [Microzide] 12.5 mg PO DAILY #30 cap Gabapentin [Neurontin] 100 mg PO 1000,1600 #60 cap Gabapentin [Neurontin] 300 mg PO HS #30 cap amLODIPine [Norvasc] 10 mg PO DAILY #30 tab Clopidogrel [Plavix] 75 mg PO DAILY #30 tab predniSONE [predniSONE Tab] See Taper PO DAILY #6 tab Pantoprazole [Protonix EC Tab] 40 mg PO 0600 #30 ect Montelukast [Singulair] 10 mg PO HS #30 tab Fenofibrate [Tricor] 145 mg PO DAILY #30 tab - Follow Up Plan Condition: STABLE Disposition: HOME/ ROUTINE Instructions: Chest Pain (DC), Chest Pain (GEN), Pneumococcal Vaccine for Adults (GEN), Renal Failure Diet (DC), Renal Failure Diet (GEN), COPD (Chronic Obstructive Pulmonary Disease) (DC), Acute Abdominal Pain (DC), Acute Abdominal Pain (GEN), Chronic Hypertension (DC), Anemia (DC) Additional Instructions: Patient discharged home. Follow up with Dr. Weathers in 1 week. Continue home medication as directed. Referrals: FAMILY PROVIDER,NO [Primary Care Provider] -
== END 2016-12-19 17:15 | disposition home or self-care (01) | DRG 192 ==
LOC: ED 21:46 → ERH 12-14 01:14 → 2RNO 12-14 02:23 → 5RNO 12-14 19:02 → OBSVTOIN 12-15 19:41
PROVIDERS: ADMIT Internal Medicine; ATTEND Internal Medicine
DX: J44.0 Chronic obstructive pulmonary disease with (acute) lower respiratory infection (principal); I65.23 Occlusion and stenosis of bilateral carotid arteries; I10 Essential (primary) hypertension; R00.0 Tachycardia, unspecified; R10.9 Unspecified abdominal pain; Z87.891 Personal history of nicotine dependence; E61.1 Iron deficiency; Z88.6 Allergy status to analgesic agent; J45.909 Unspecified asthma, uncomplicated; M19.90 Unspecified osteoarthritis, unspecified site; M06.9 Rheumatoid arthritis, unspecified; M48.00 Spinal stenosis, site unspecified; F41.9 Anxiety disorder, unspecified; Z96.653 Presence of artificial knee joint, bilateral; Z88.1 Allergy status to other antibiotic agents; Z88.8 Allergy status to other drugs, medicaments and biological substances; Z88.5 Allergy status to narcotic agent; Z82.49 Family history of ischemic heart disease and other diseases of the circulatory system; J32.9 Chronic sinusitis, unspecified; J04.0 Acute laryngitis; Z96.649 Presence of unspecified artificial hip joint; E66.9 Obesity, unspecified; R73.03 Prediabetes; Z82.3 Family history of stroke; Z87.01 Personal history of pneumonia (recurrent); Z87.442 Personal history of urinary calculi; Z87.440 Personal history of urinary (tract) infections; I16.0 Hypertensive urgency; J20.9 Acute bronchitis, unspecified; F51.02 Adjustment insomnia; R09.82 Postnasal drip; E78.5 Hyperlipidemia, unspecified; G47.30 Sleep apnea, unspecified; I34.0 Nonrheumatic mitral (valve) insufficiency; Z68.34 Body mass index [BMI] 34.0-34.9, adult

== ENCOUNTER 2017-07-02 19:31 | Observation (INO) | payer MEDICARE, OTHER ==
--- NOTE | 2017-07-02 21:05 | ED PDOC ---
Arrival/HPI - General Chief Complaint: Weakness/Neurological Deficit Time Seen by Provider: 07/02/17 20:18 Historian: Patient - Critical Care Critical Care Minutes: 30 minutes - History of Present Illness Narrative History of Present Illness (Text): 07/02/17 20:20 Lottie Wong is a 62 year old female, whose past medical history includes cholesterol, hypertension, arthritis, and right sided numbness, who presents to the emergency department complaining of numbness to face and right side of body for the past 5 days. Patient notes that the numbness started from the back of neck and radiates up to her face and down the right side of her body. Patient also indicates that she experiences a shooting pain in her right hand. Patient denies any fever, chills, chest pain, shortness of breath, nausea, vomiting, diarrhea, urinary symptoms, headache, dizziness, or any other complaints. PMD: Dr. Kirk Time/Duration: < week Symptom Onset: Gradual Symptom Course: Unchanged Activities at Onset: Light Context: Home Past Medical History - Provider Review Nursing Documentation Reviewed: Yes - Infectious Disease Hx of Infectious Diseases: None - Tetanus Immunization Tetanus Immunization: Unknown - Reproductive Menopause: Yes - Past Medical History Past Medical History: No Previous - Cardiac Hx Cardiac Disorders: Yes Hx Hypertension: Yes - Pulmonary Hx Respiratory Disorders: Yes Hx Asthma: Yes Hx Chronic Obstructive Pulmonary Disease (COPD): Yes Hx Pneumonia: Yes - Neurological Hx Neurological Disorder: No - HEENT Hx HEENT Disorder: Yes (Glasses) - Renal Hx Kidney Stones: Yes - Endocrine/Metabolic Hx Endocrine Disorders: No - Hematological/Oncological Hx Blood Disorders: No - Integumentary Hx Dermatological Disorder: No - Musculoskeletal/Rheumatological Hx Arthritis: Yes Hx Degenerative Joint Disease: Yes Hx Falls: Yes - Gastrointestinal Hx Gastrointestinal Disorders: No - Genitourinary/Gynecological Hx Urinary Tract Infection: Yes - Psychiatric Hx Anxiety: Yes Hx Substance Use: No - Past Surgical History Past Surgical History: Non-Contributing - Surgical History Hx Hysterectomy: Yes (2000) Other/Comment: knee replacement 2010,2011 - Anesthesia Hx Anesthesia: Yes - Suicidal Assessment Feels Threatened In Home Enviroment: No Family/Social History - Physician Review Nursing Documentation Reviewed: Yes Family/Social History: No Known Family HX Smoking Status: Former Smoker Hx Alcohol Use: No Hx Substance Use: No Hx Substance Use Treatment: No Allergies/Home Meds Allergies/Adverse Reactions: Allergies acetaminophen [From Percocet] Allergy (Verified 07/25/15 00:08) hives aspirin Allergy (Verified 12/13/16 22:17) RASH azithromycin [From Zithromax] Allergy (Verified 07/25/15 00:08) RASH codeine Allergy (Verified 07/25/15 00:08) ANAPHYLAXIS meperidine HCl [From Demerol] Allergy (Verified 07/24/15 17:37) SWELLING morphine Allergy (Verified 07/24/15 17:37) SWELLING oxycodone HCl [From Percocet] Allergy (Verified 07/25/15 00:08) hives tramadol Allergy (Verified 07/24/15 17:37) SWELLING hydrocodone bitartrate [From Vicodin] Adverse Reaction (Verified 07/25/15 00:08) NAUSEA zithromax Allergy (Uncoded 07/25/15 00:08) hives Home Medications: Home Meds Medication Instructions Recorded Confirmed Unobtainable 07/02/17 07/02/17 Review of Systems - Physician Review All systems were reviewed & negative as marked: Yes - Review of Systems Constitutional: absent: Fevers, Night Sweats Eyes: absent: Vision Changes ENT: absent: Hearing Changes Respiratory: absent: SOB, Cough Cardiovascular: absent: Chest Pain Gastrointestinal: absent: Abdominal Pain Genitourinary Female: absent: Dysuria, Frequency Musculoskeletal: absent: Arthralgias Skin: absent: Rash, Pruritis Neurological: Other (numbness to face and right side of body). absent: Headache , Dizziness Endocrine: absent: Diaphoresis Hemo/Lymphatic: absent: Adenopathy Psychiatric: absent: Anxiety, Depression Physical Exam Vital Signs Reviewed: Yes Vital Signs Temp Pulse Resp BP Pulse Ox 07/02/17 22:55 68 16 194/89 H 99 07/02/17 22:52 60 194/89 H 07/02/17 21:41 98.0 F 67 16 181/89 H 97 07/02/17 19:32 98 F 92 H 16 193/107 H 97 Temperature: Afebrile Blood Pressure: Hypertensive Pulse: Tachycardic Respiratory Rate: Normal Appearance: Positive for: Well-Appearing, Non-Toxic, Comfortable Pain Distress: None Mental Status: Positive for: Alert and Oriented X 3 - Systems Exam Head: Present: Atraumatic, Normocephalic Pupils: Present: PERRL Extroacular Muscles: Present: EOMI Conjunctiva: Present: Normal Mouth: Present: Moist Mucous Membranes Neck: Present: Normal Range of Motion Respiratory/Chest: Present: Clear to Auscultation, Good Air Exchange. No: Respiratory Distress, Accessory Muscle Use Cardiovascular: Present: Regular Rate and Rhythm, Normal S1, S2. No: Murmurs Abdomen: Present: Normal Bowel Sounds. No: Tenderness, Distention, Peritoneal Signs Back: Present: Normal Inspection Upper Extremity: Present: Normal Inspection. No: Cyanosis, Edema Lower Extremity: Present: Normal Inspection. No: Edema Neurological: Present: GCS=15, CN II-XII Intact, Speech Normal Skin: Present: Warm, Dry, Normal Color. No: Rashes Psychiatric: Present: Alert, Oriented x 3, Normal Insight, Normal Concentration Medical Decision Making ED Course and Treatment: 07/02/17 20:20 Impression: 62 year old female complaining of numbness to face and right side of body for the past 5 days. Differential Diagnosis included but are not limited to: Neuropathy vs. CVA vs Hypertensive Urgency Plan: -- EKG -- Chest X-ray -- Head CT w/o contrast -- Type and Screen -- Labs -- Reassess and disposition Prior Visits: Notes and results from previous visits were reviewed. Patient was last seen in the emergency department on 12/13/16 for chest tightness. Patient was admitted to hospitalist care for further evaluation. Progress Notes: 07/02/17 23:09 CT Head Without Intravenous Contrast IMPRESSION: 1. No definite territorial infarction. Acute infarction may be CT occult within first 24 hours. If focal deficit persists, consider followup CT or MRI for further evaluation. 2. Incidental/non-acute findings are described above. Dictated By: Craig Saldana MD Dictated Date/Time: 07/02/172248 Signed By: Craig Saldana MD Date Signed: 2248 Transcribed By: EUSEBIO Transcribe Date/Time : 07/02/172248 11:10 - Labetolol given for BP elevation. CT head negative. Patient states she is not allergic to aspirin because she takes one baby aspirin daily. Once she got an upset stomach but she has not had that anymore. Aspirin PO rdered. Case was discussed with Dr. Alcala will consult Dr. Mao for Neurology and place to her service. - Lab Interpretations Lab Results: 07/02/17 21:40 07/02/17 21:40 Lab Results 07/02/17 21:40: Sodium 137, Potassium 4.4, Chloride 102, Carbon Dioxide 25, Anion Gap 14, BUN 21, Creatinine 0.8, Est GFR ( Amer) > 60, Est GFR (Non- Af Amer) > 60, Random Glucose 104, Calcium 10.6 H, Total Bilirubin 0.5, AST 20, ALT 33, Alkaline Phosphatase 146 H, Troponin I < 0.01, Total Protein 7.2, Albumin 3.8, Globulin 3.4, Albumin/Globulin Ratio 1.1, Triglycerides 107, Cholesterol 200, LDL Cholesterol Direct 133 H, HDL Cholesterol 51 07/02/17 21:40: PT 11.0, INR 0.97, APTT 29.8 07/02/17 21:40: WBC 11.0 D, RBC 4.81, Hgb 13.7, Hct 41.9, MCV 87.1, MCH 28.5, MCHC 32.7, RDW 14.4, Plt Count 347, MPV 9.4, Gran % 66.0, Lymph % (Auto) 29.1, [place] % (Auto) 3.3, Eos % (Auto) 1.3 L, Baso % (Auto) 0.3, Gran # 7.25 H, Lymph # 3.2, [place] # 0.4, Eos # 0.1, Baso # 0.03 07/02/17 21:37: POC Glucose (mg/dL) 106 I have reviewed the lab results: Yes - RAD Interpretation Radiology Orders: 07/02/17 20:27 HEAD W/O CONTRAST [CT] Stat CHEST PORTABLE [RAD] Stat - Medication Orders Current Medication Orders: Aspirin (Aspirin) 325 mg PO STAT STA Stop: 07/02/17 23:06 Discontinued Medications Labetalol HCl (Trandate) 10 mg IV STAT STA Stop: 07/02/17 21:58 Last Admin: 07/02/17 22:52 Dose: 10 mg eMAR Start Stop Document 07/02/17 22:52 OCS (Rec: 07/02/17 22:53 OCS [facility] [id number]) Intravenous Solution Start Date 07/02/17 Start Time 22:53 End Date 07/02/17 End time 22:55 Total Infusion Time 2 MAR Pulse and Blood Pressure Document 07/02/17 22:52 OCS (Rec: 07/02/17 22:53 [facility]CS [facility] [email or web address]) Pulse Pulse Rate (60-90) 60 Blood Pressure Blood Pressure (100/60-150/90) 194/89 NIHSS Scale ([place]) Time Performed: 20:10 - How Severe is the [place]oke 7-10 days Level of Consciousness: 0=Alert LOC to Questions: 0=Both comments correct LOC to commands: 0=Obeys both correctly Best Gaze: 0=Normal Visual: 0=No visual loss Facial: 0=Normal Motor Arm - Left: 0=No drift Motor Arm - Right: 0=No drift Motor Leg - Left: 0=No drift Motor Leg - Right: 0=No drift Limb Ataxia: 0=Absent Sensory: 0=Normal Best Language: 0=No aphasia Dysarthia: 0=Normal articulation Extinction & Inattention (Neglect): 0=Normal, no object Score: 0 Risk Level: No Stroke Risk rTPA Inclusion/Exclusion - Refusal of Treatment Patient Refused Treatment: No - Inclusion Criteria for Altepase Patient is 18 years or Older: Yes The Clinical Diagnosis of Ischemic Stroke That is Causing a Potentially Disabling Neurological Deficit: Yes Time of Onset is Well Established to be Less Than 270 Minute Before Treatment Would Begin: No Risk/Benefit Discussed With Patient/Family Member Present: No - Scribe Statement The provider has reviewed the documentation as recorded by the Scribe Migdalia Lyons Provider Scribe Attestation: All medical record entries made by the Scribe were at my direction and personally dictated by me. I have reviewed the chart and agree that the record accurately reflects my personal performance of the history, physical exam, medical decision making, and the department course for this patient. I have also personally directed, reviewed, and agree with the discharge instructions and disposition. Disposition/Present on Arrival - Present on Arrival Any Indicators Present on Arrival: No History of DVT/PE: No History of Uncontrolled Diabetes: No Urinary Catheter: No History of Decub. Ulcer: No History Surgical Site Infection Following: None - Disposition Have Diagnosis and Disposition been Completed?: Yes Diagnosis: Hypertensive urgency, TIA (transient ischemic attack) Disposition: HOSPITALIZED Disposition Time: 23:13 Patient Plan: Observation Condition: FAIR Referrals: Nayana Kirk MD [Primary Care Provider] - Follow up with primary Forms: [employer] (Swiss)
[2017-07-02 21:48] LABS: BASO # 0.03 K/mm3 (0.0-2.0); BASO % 0.3 % (0.0-3.0); EOS # 0.1 (0.0-0.7); EOS % 1.3 % (1.5-5.0); GRAN # 7.25 (1.4-6.5); HEMOGLOBIN 13.7 g/dL (12.0-16.0); LYMPH # 3.2 (1.2-3.4); LYMPH % 29.1 % (22.0-35.0); MEAN CELL VOLUME 87.1 fl (80.0-105.0); MEAN CORPUSCULAR HEMOGLOBIN 28.5 pg (25.0-35.0); MEAN CORPUSCULAR HGB CONC 32.7 g/dl (31.0-37.0); MEAN PLATELET VOLUME 9.4 fl (7.0-11.0); MONO # 0.4 (0.1-0.6); MONO % 3.3 % (1.0-6.0); RBC 4.81 10^6/uL (3.5-6.1); RED CELL DISTRIBUTION WIDTH 14.4 % (11.5-14.5)
[2017-07-02] MEDS ORDERED: Labetalol 5 mg/ml Inj 20ML IV STA ×2 (21:57→23:13)
[2017-07-02 22:01] LABS: INR 0.97 (0.93-1.08); PARTIAL THROMBOPLASTIN TIME 29.8 Seconds (25.1-36.5)
[2017-07-02 22:04] LABS: ALB/GLOB RATIO 1.1 (1.1-1.8); ALBUMIN 3.8 g/dL (3.0-4.8); ALT/SGPT 33 U/L (7-56); AST/SGOT 20 U/L (14-36); BLOOD UREA NITROGEN 21 mg/dL (7-21); CALCIUM 10.6 mg/dL (8.4-10.5); GFR AFRICAN-AMERICAN > 60; GFR NON-AFRICAN AMERICAN > 60; HDL CHOLESTEROL 51 mg/dL (29-60)
[2017-07-02 22:14] LABS: LDL CHOLESTEROL 133 mg/dL (0-129)
[2017-07-02 22:17] LABS: TROPONIN I < 0.01 ng/mL
--- NOTE | 2017-07-02 22:49 | CT ---
EXAM: CT Head Without Intravenous Contrast CLINICAL HISTORY: 62 years old, female; Pain; Headache; Tension; Additional info: Right numbness R/O CVA TECHNIQUE: Axial computed tomography images of the head/brain without intravenous contrast. All CT scans at this facility use one or more dose reduction techniques, viz.: automated exposure control; ma/kV adjustment per patient size (including targeted exams where dose is matched to indication; i.e. head); or iterative reconstruction technique. Coronal and sagittal reformatted images were created and reviewed. COMPARISON: CT - HEAD W/O CONTRAST 2016-12-15 15:10 FINDINGS: Brain: Minimal atrophy. No intracranial hemorrhage. No mass. No definite edema. Ventricles: No hydrocephalus. Bones/joints: No acute fracture. Soft tissues: Unremarkable. Vasculature: Minimal atherosclerotic disease of intracranial arteries. Sinuses: No acute sinusitis. Mastoid air cells: No mastoid effusion. Orbits: Unremarkable as visualized. IMPRESSION: 1. No definite territorial infarction. Acute infarction may be CT occult within first 24 hours. If focal deficit persists, consider followup CT or MRI for further evaluation. 2. Incidental/non-acute findings are described above.
--- NOTE | 2017-07-03 03:29 | HP ---
HISTORY OF PRESENT ILLNESS: The patient is a 62-year-old who came to Emergency Room with right-sided numbness going on intermittently for last 5 days and also complain of pain in right upper and lower extremity. The patient states numbness started from the back of the neck going up to her face and associated with pain in the arm and the neck area and going up in the right hand. No history of fever or chills. No nausea or vomiting. No diarrhea. PAST MEDICAL HISTORY: Significant for: 1. COPD. 2. Hypertension. 3. Chronic kidney disease. PAST SURGICAL HISTORY: Significant for knee arthroplasty in 2010 and 2011. SOCIAL HISTORY: She used to be a smoker, quit couple of years ago. No history of drug or alcohol abuse. FAMILY HISTORY: Relevant for mother having stroke. ALLERGIES: SHE IS ALLERGIC TO MEPERIDINE, MORPHINE, TRAMADOL, TYLENOL, AZITHROMYCIN, CODEINE, AND ASPIRIN. MEDICATIONS AT HOME: The patient is on aspirin, metoprolol, Plavix 75 daily, gabapentin 300 at bedtime, amlodipine 10 mg daily, prednisone was given , Protonix 40 daily, Singulair 10 mg daily, daily, losartan 50 mg daily, and Advair. REVIEW OF SYSTEMS: Significant for right-sided facial numbness and right upper extremity numbness. PHYSICAL EXAMINATION: GENERAL: The patient is awake, alert, oriented, and able to communicate. VITAL SIGNS: The patient is afebrile, pulse 67, respirations 16, and blood pressure 194/89. LUNGS: Bilateral fair airflow. No rhonchi or crackle. HEART: S1 and S2 audible. ABDOMEN: Soft and nontender. No rebound. No guarding. NEUROLOGIC: The patient is awake, alert, and able to communicate. EXTREMITIES: Bilateral leg, no edema. LABORATORY DATA: WBC is 11, hemoglobin is 13.7, hematocrit is 41.9, and platelets of 347. PT 11.0 and INR 0.97. Sodium 137, potassium 4.4, chloride 102, CO2 of 25, BUN 21, creatinine 0.8, blood sugar of 104, and calcium 10.6. Alk phos 146. Troponin 0.01. LDL is 133. CT scan of the head is unremarkable. Stress test is unremarkable. The patient has previous workup done including stress test in 01/2017 that was suspicious for ischemia and carotid Doppler in 12/2016 was unremarkable. ASSESSMENT: 1. Right facial numbness, questionable cerebrovascular accident. 2. Hypertension. 3. Hyperlipidemia. 4. History of chronic obstructive pulmonary disease. PLAN: The patient will be placed on observation. The patient was given aspirin in the ER already. Continue her on Lipitor, Protonix, metoprolol, and Norvasc. Neuro consult by Dr. Mao has been requested. We will followup the patient in a.m. Arina Alcala MD
[2017-07-03 05:19] VITALS: BMI 34.0
[2017-07-03] MEDS: Levalbuterol 1.25 MG/3 ML Inhal Soln UD IH SCH ×3 (05:54→13:39)
[2017-07-03 06:20] VITALS: RESP 18; O2SAT 95
[2017-07-03] MEDS ORDERED: Pantoprazole 40 mg EC Tab PO SCH (06:30)
--- NOTE | 2017-07-03 07:57 | CP.PCM.CON ---
<Gunjan Holman - Last Filed: 07/03/17 11:38> History of Present Illness - History of Present Illness History of Present Illness: Consult: R numbness Lottie Wong is a 62 year old female, whose past medical history includes cholesterol, hypertension, copd, rheumatoid arthritis, who presents to the emergency department complaining of numbness to face and right side of body for the past 5 days. Patient notes that the numbness started from the back of neck and radiates up to her face and down the right side of her body. (+) med changes. She was newly on leflunomide for RA 2 weeks ago. Gabapentin increased to 100mg TID. She had cortison injection on R shoulder 1 week ago. IN the ED, NIHSS 0. BP is 190s/100s, then given labetalol. ROS-Patient denies any fever, chills, vision changes, drooling/choking, chest pain, shortness of breath, nausea, vomiting, diarrhea, urinary symptoms, headache, dizziness, or any other complaints. EKG: NSR 74. Q waves in III, aVF. CT-head: No definite territorial infarction. CBC unremarkable Calcium 10.6, Alk Phos 146. Na/K/GFR normal Tele: Normal sinus PMD: Dr. Kirk PMH: Rheumatoid arthritis on leflunomide (Last use hydroxychloroquine 2 years ago) HTN, HLD COPD, Asthma, Former smoker Hx Falls PSH: knee replacement 2010,2011; Hysterectomy 2000 FH: SH: Former smoker All: Aspirin (nausea), Acetaminophen, Azithromycin, Codeine, meperidine, morphine, oxycodone, Tramadol, Hydrocodone Med: Aspirin 81 daily, Lipitor 20 Ziac 10-6.25 Meloxicam Leflunomide 20 daily Advair Review of Systems - Review of Systems All systems: reviewed and no additional remarkable complaints except Review of Systems: as per HPI Past Patient History - Infectious Disease Hx of Infectious Diseases: None - Tetanus Immunizations Tetanus Immunization: Unknown - Past Medical History & Family History Past Medical History?: Yes - Past Social History Smoking Status: Former Smoker - CARDIAC Hx Hypercholesterolemia: Yes Hx Hypertension: Yes - PULMONARY Hx Asthma: Yes Hx Chronic Obstructive Pulmonary Disease (COPD): Yes Hx Pneumonia: Yes - NEUROLOGICAL Hx Neurological Disorder: No - HEENT Hx HEENT Problems: Yes (Glasses) - RENAL Hx Kidney Stones: Yes - ENDOCRINE/METABOLIC Hx Endocrine Disorders: No - HEMATOLOGICAL/ONCOLOGICAL Hx Blood Disorders: No - INTEGUMENTARY Hx Dermatological Problems: No - MUSCULOSKELETAL/RHEUMATOLOGICAL Hx Arthritis: Yes Hx Back Pain: Yes Hx Degenerative Joint Disease: Yes Hx Falls: Yes Hx Herniated Disk: Yes - GASTROINTESTINAL Hx Gastrointestinal Disorders: No - GENITOURINARY/GYNECOLOGICAL Hx Urinary Tract Infection: Yes - PSYCHIATRIC Hx Anxiety: Yes Hx Substance Use: No - SURGICAL HISTORY Hx Hysterectomy: Yes (2000) Other/Comment: knee replacement 2010,2011 - ANESTHESIA Hx Anesthesia: Yes Meds Allergies/Adverse Reactions: Allergies Allergy/AdvReac Type Severity Reaction Status Date / Time azithromycin [From Zithromax] Allergy RASH Verified 07/25/15 00:08 codeine Allergy ANAPHYLAXIS Verified 07/25/15 00:08 meperidine HCl [From Demerol] Allergy SWELLING Verified 07/24/15 17:37 morphine Allergy SWELLING Verified 07/24/15 17:37 oxycodone HCl [From Percocet] Allergy hives Verified 07/25/15 00:08 tramadol Allergy SWELLING Verified 07/24/15 17:37 aspirin AdvReac Mild NAUSEA Verified 07/02/17 23:17 hydrocodone bitartrate AdvReac NAUSEA Verified 07/25/15 00:08 [From Vicodin] zithromax Allergy hives Uncoded 07/25/15 00:08 - Medications Medications: Current Medications Acetaminophen (Tylenol 325mg Tab) 650 mg PO Q6H PRN PRN Reason: Fever >100.4 F Amlodipine Besylate (Norvasc) 10 mg PO DAILY [facility] Aspirin (Aspirin Chewable) 81 mg PO DAILY [facility] Atorvastatin Calcium (Lipitor) 10 mg PO DAILY [facility] Levalbuterol HCl (Xopenex) 1.25 mg IH [id number] [facility] Last Admin: 07/03/17 05:54 Dose: Not Given Metoprolol Succinate (Toprol Xl) 25 mg PO BRK [facility] Pantoprazole Sodium (Protonix Ec Tab) 40 mg PO 0630 [facility] Last Admin: 07/03/17 05:54 Dose: 40 mg Physical Exam - Constitutional Appears: No Acute Distress - Head Exam Head Exam: ATRAUMATIC, NORMAL INSPECTION, NORMOCEPHALIC - Eye Exam Eye Exam: EOMI, Normal appearance, PERRL Pupil Exam: NORMAL ACCOMODATION, PERRL - ENT Exam ENT Exam: Mucous Membranes Moist - Neck Exam Additional comments: supple - Respiratory Exam Respiratory Exam: Clear to Auscultation Bilateral, NORMAL BREATHING PATTERN - Cardiovascular Exam Cardiovascular Exam: REGULAR RHYTHM, +S1, +S2 - GI/Abdominal Exam GI & Abdominal Exam: Normal Bowel Sounds, Soft. absent: Tenderness - Extremities Exam Extremities exam: Positive for: normal capillary refill. Negative for: calf tenderness, pedal edema - Neurological Exam Neurological exam: Alert, CN II-XII Intact, Oriented x3, Reflexes Normal Additional comments: Speech: No aphasia Recall: 3/ Motor: 4+ LLE. 5+ other extremities Sensory: intact finger to nose coordination: intact rapid alt movment: intact No pronator drift Results - Vital Signs Recent Vital Signs: Last Vital Signs Temp 98.8 F 07/03/17 06:00 Pulse 63 07/03/17 06:00 Resp 18 07/03/17 06:00 BP 153/66 H 07/03/17 06:00 Pulse Ox 95 07/03/17 06:00 - Labs Result Diagrams: 07/02/17 21:40 07/02/17 21:40 Labs: Laboratory Results - last 24 hr 07/03/17 05:15 Blood Type Confirm B POSITIVE Assessment & Plan - Assessment and Plan (Free Text) Plan: Lottie Wong is a 62 year old female, whose past medical history includes cholesterol, hypertension, copd, rheumatoid arthritis, who presents to the emergency department complaining of numbness to face and right side of body for the past 5 days. IN the ED, NIHSS 0. BP is 190s/100s, then given labetalol. Numbness and tingling on R face, arm, leg, likely due to hypertensive urgency vs hypercalcemia - Keep SBP 120-130 - Avoid sudden drop of blood pressure - physical therapy eval - MRI brain - If negative MRI brain, then neurologically stable to discharge. - follow up with neurologist outpatient - Ordered hypercalcemia workup s/r/d/w Dr. Mao <Margarito Mao - Last Filed: 07/03/17 14:35> Meds - Medications Medications: Current Medications Acetaminophen (Tylenol 325mg Tab) 650 mg PO Q6H PRN PRN Reason: Fever >100.4 F Amlodipine Besylate (Norvasc) 10 mg PO DAILY [facility] Last Admin: 07/03/17 09:12 Dose: 10 mg Aspirin (Aspirin Chewable) 81 mg PO DAILY [facility] Last Admin: 07/03/17 09:13 Dose: 81 mg Atorvastatin Calcium (Lipitor) 10 mg PO DAILY [facility] Last Admin: 07/03/17 09:16 Dose: Not Given Levalbuterol HCl (Xopenex) 1.25 mg IH [id number] [facility] Last Admin: 07/03/17 13:39 Dose: Not Given Metoprolol Succinate (Toprol Xl) 25 mg PO BRK [facility] Last Admin: 07/03/17 09:13 Dose: 25 mg Pantoprazole Sodium (Protonix Ec Tab) 40 mg PO 0630 [facility] Last Admin: 07/03/17 05:54 Dose: 40 mg Results - Vital Signs Recent Vital Signs: Last Vital Signs Temp 98.1 F 07/03/17 11:44 Pulse 79 07/03/17 14:00 Resp 18 07/03/17 11:44 BP 142/77 07/03/17 11:44 Pulse Ox 95 07/03/17 06:00 - Labs Result Diagrams: 07/02/17 21:40 07/02/17 21:40 Labs: Laboratory Results - last 24 hr 07/03/17 05:15 Blood Type Confirm B POSITIVE Attending/Attestation - Attestation I have personally seen and examined this patient.: Yes I have fully participated in the care of the patient.: Yes I have reviewed all pertinent clinical information: Yes Notes (Text): TRANSIENT NUMBNESS IS SEC TO HTN URGENCY FROM STRESS. NEURO EXAM IS NO FOCAL. ASA 81 MG PO DAILY AND LIPITOR 40 MG PO DAILY. CLEARED FROM NEURO STANDPOINT. PT REFUSED MRI BRAIN. 07/03/17 14:34
[2017-07-03] MEDS ORDERED: Metoprolol Succinate 25 mg XL Tab PO SCH (08:00)
--- NOTE | 2017-07-03 08:31 | RAD ---
HISTORY: cva COMPARISON: 12/13/2016 FINDINGS: LUNGS: No active pulmonary disease. PLEURA: No significant pleural effusion identified, no pneumothorax apparent. CARDIOVASCULAR: Normal. OSSEOUS STRUCTURES: No significant abnormalities. VISUALIZED UPPER ABDOMEN: Normal. OTHER FINDINGS: None. IMPRESSION: No active disease.
--- NOTE | 2017-07-03 10:56 | CARD ---
APPROVED REPORT EKG Measurement Heart [id number] PA 150P50 [id number] <Conclusion> Normal sinus rhythm Minimal voltage criteria for LVH, may be normal variant Inferior infarct, age undetermined Abnormal ECG
--- NOTE | 2017-07-03 13:48 | PN ---
DATE: SUBJECTIVE: The patient is a 62-year-old female, seen and examined, lying in bed and seems to be to be comfortable. Facial numbness is almost gone. She complained of right upper extremity shoulder and elbow pain. Otherwise doing well, but anxious to go home. PHYSICAL EXAMINATION VITAL SIGNS: She is afebrile. Pulse is 75, respirations are 18, and blood pressure is 142/77. LUNGS: Bilateral fair airflow. No rhonchi or crackle. HEART: S1 and S2 audible. ABDOMEN: Soft and nontender. No rebound and no guarding. NEUROLOGICAL: The patient is awake, alert, oriented, and communicative. She moves all extremities. EXTREMITIES: She has old scar on both knees with some discomfort in knee. Otherwise, she is doing well. Bilateral leg, no edema. LABORATORY EXAM: There is no new lab available today. DIAGNOSTIC DATA: CT scan of the head is negative. Carotid Doppler is pending. MRI of the brain is pending. PLAN: We will follow up carotid Doppler and MRI. We will continue on aspirin, atorvastatin, amlodipine, and metoprolol. Once these tests are available, we will make a discharge plan and see . Arina Alcala MD
--- NOTE | 2017-07-03 15:45 | US ---
PROCEDURE: Bilateral carotid artery duplex ultrasound HISTORY: Carotid stenosis syncope PHYSICIAN(S): Frank Akbar MD. TECHNIQUE: Duplex sonography and color-flow Doppler were used to evaluate the carotid bifurcations and limited segments of the vertebral arteries bilaterally. FINDINGS: There is mild smooth heterogeneous plaque noted at the carotid bifurcations bilaterally. The peak systolic velocity in the proximal right internal carotid artery is 82 cm/sec. This corresponds to a 20 to 39% proximal right ICA stenosis. Normal systolic velocities are noted in the proximal right external carotid artery. There is antegrade flow in the right vertebral artery. The peak systolic velocity in the proximal left internal carotid artery is 86 cm/sec. This corresponds to a 20 to 39% proximal left ICA stenosis. Normal systolic velocities are noted in the proximal left external carotid artery. There is antegrade flow in the left vertebral artery. IMPRESSION: 1. Bilateral 20-39% proximal ICA stenoses. 2. Antegrade flow in both vertebral arteries.
[2017-07-03 18:28] VITALS: BP 150/82; PULSE 85; TEMP 98.6
== END 2017-07-03 18:59 | disposition home or self-care (01) ==
LOC: ED 19:31 → ERH 23:57 → 2RSO 07-03 01:53
PROVIDERS: ADMIT Internal Medicine; ATTEND Internal Medicine
DX: I16.0 Hypertensive urgency (principal); R20.0 Anesthesia of skin; I12.9 Hypertensive chronic kidney disease with stage 1 through stage 4 chronic kidney disease, or unspecified chronic kidney disease; N18.9 Chronic kidney disease, unspecified; M06.9 Rheumatoid arthritis, unspecified; E78.5 Hyperlipidemia, unspecified; J44.9 Chronic obstructive pulmonary disease, unspecified; Z87.891 Personal history of nicotine dependence; Z79.82 Long term (current) use of aspirin
CPT/HCPCS: 36415; 70450; 71045; 80053; 80061; 82306; 82948; 83036; 84484; 85025; 85610; 85730; 86850; 86900; 93005; 93880; 97116; 97161; 99285; G0378; G8978; G8979; G8980

== ENCOUNTER 2018-03-28 16:17 | Observation (INO) | payer MEDICARE ==
[2018-03-28] MEDS ORDERED: Albuterol-Ipratrop 3 mg / 0.5 (3 ml) UD IH STA (17:27)
[2018-03-28 17:39] VITALS: RESP 18
[2018-03-28] MEDS ORDERED: Labetalol 5 mg/ml Inj 20ML IV STA ×2 (18:34→20:14)
[2018-03-28 18:36] LABS: VENOUS BLOOD GAS BASE EXCESS 2.8 mmol/L (0.0-2.0); VENOUS BLOOD GAS PO2 160 mm/Hg (30-55); VENOUS BLOOD PH 7.44 (7.32-7.43)
--- NOTE | 2018-03-28 18:43 | CT ---
Date of service: 03/28/2018 PROCEDURE: CT HEAD WITHOUT CONTRAST. HISTORY: headache COMPARISON: Noncontrast head CT performed 07/02/17 TECHNIQUE: Axial computed tomography images were obtained through the head/brain without intravenous contrast. Radiation dose: Total exam DLP = 776.64 mGy-cm. This CT exam was performed using one or more of the following dose reduction techniques: Automated exposure control, adjustment of the mA and/or kV according to patient size, and/or use of iterative reconstruction technique. FINDINGS: HEMORRHAGE: No intracranial hemorrhage. BRAIN: Mild generalized atrophy. No mass effect or edema. Intracranial atherosclerosis. The cortes-white matter differentiation appears intact. Please note that MRI with diffusion imaging is more sensitive in the detection of acute ischemic event. VENTRICLES: No hydrocephalus. CALVARIUM: Unremarkable. PARANASAL SINUSES: Unremarkable as visualized. No significant inflammatory changes. MASTOID AIR CELLS: Unremarkable as visualized. No inflammatory changes. OTHER FINDINGS: Partial opacification of the right external auditory canal, likely cerumen. IMPRESSION: No acute intracranial pathology identified. Findings as above.
[2018-03-28 18:45] LABS: BASO # 0.01 K/mm3 (0.0-2.0); BASO % 0.1 % (0.0-3.0); GRAN # 9.78 (1.4-6.5); GRAN % 84.9 % (50.0-68.0); HEMOGLOBIN 13.7 g/dL (12.0-16.0); LYMPH # 1.3 (1.2-3.4); LYMPH % 11.6 % (22.0-35.0); MEAN CELL VOLUME 87.1 fl (80.0-105.0); MEAN CORPUSCULAR HEMOGLOBIN 28.5 pg (25.0-35.0); MEAN CORPUSCULAR HGB CONC 32.8 g/dl (31.0-37.0); MEAN PLATELET VOLUME 9.5 fl (7.0-11.0); MONO # 0.4 (0.1-0.6); MONO % 3.4 % (1.0-6.0); RBC 4.8 10^6/uL (3.5-6.1); RED CELL DISTRIBUTION WIDTH 14.1 % (11.5-14.5); WHITE BLOOD COUNT 11.5 10^3/uL (4.5-11.0)
[2018-03-28 18:49] LABS: ALB/GLOB RATIO 1.1 (1.1-1.8); ALT/SGPT 29 U/L (7-56); AST/SGOT 24 U/L (14-36); BLOOD UREA NITROGEN 18 mg/dL (7-21); CALCIUM 9.6 mg/dL (8.4-10.5); GFR NON-AFRICAN AMERICAN > 60
[2018-03-28 18:51] LABS: INR 1.02; PARTIAL THROMBOPLASTIN TIME 25.9 Seconds (25.1-36.5); PROTHROMBIN TIME 11.6 SECONDS (9.4-12.5)
--- NOTE | 2018-03-28 18:55 | ED PDOC ---
Arrival/HPI - General Historian: Patient - History of Present Illness Narrative History of Present Illness (Text): 03/28/18 18:44 63yo female with pmhx of hypertension, hyperlipdemia, arthritis who present with complaint of headache and elevated BP since earlier today. States she saw her PMD on Sunday for Sinus infection which triggered her Asthma and was placed on Methylprednisone and antibiotics. States she started having headache after she started the antibiotics and noticed her BP elevated. States she started having lower back spasm and when she called her Doctors's office she was told to check her BP again and it was 198/75 so she was advised to go to ED. She reports taking Aleve earlier today. Denies visual changes, focal weakness, neck pain, rash, chest pain, SOB, diaphoresis, abdominal pain, nausea, any other complaint. <Rosalinda Flynn - Last Filed: 03/28/18 20:17> <Jerrod Chavez - Last Filed: 03/28/18 20:45> - General Chief Complaint: High Blood Pressure Time Seen by Provider: 03/28/18 17:12 Past Medical History - Provider Review Nursing Documentation Reviewed: Yes - Infectious Disease Hx of Infectious Diseases: None - Tetanus Immunization Tetanus Immunization: Unknown - Reproductive Menopause: Yes - Past Medical History Past Medical History: No Previous - Cardiac Hx Hypertension: Yes - Pulmonary Hx Asthma: Yes Hx Chronic Obstructive Pulmonary Disease (COPD): Yes Hx Pneumonia: Yes - Neurological Hx Neurological Disorder: No - HEENT Hx HEENT Disorder: Yes (Glasses) - Renal Hx Kidney Stones: Yes - Endocrine/Metabolic Hx Endocrine Disorders: No - Hematological/Oncological Hx Blood Disorders: No - Integumentary Hx Dermatological Disorder: No - Musculoskeletal/Rheumatological Hx Arthritis: Yes Hx Back Pain: Yes Hx Degenerative Joint Disease: Yes Hx Falls: Yes Hx Herniated Disk: Yes - Gastrointestinal Hx Gastrointestinal Disorders: No - Genitourinary/Gynecological Hx Urinary Tract Infection: Yes - Psychiatric Hx Anxiety: Yes Hx Substance Use: No - Past Surgical History Past Surgical History: Non-Contributing - Surgical History Hx Hysterectomy: Yes (2000) Other/Comment: knee replacement 2010,2011 - Anesthesia Hx Anesthesia: Yes - Suicidal Assessment Feels Threatened In Home Enviroment: No <Rosalinda Flynn A - Last Filed: 03/28/18 20:17> Family/Social History - Physician Review Nursing Documentation Reviewed: Yes Family/Social History: Unknown Family HX Smoking Status: Former Smoker Hx Alcohol Use: No Hx Substance Use: No Hx Substance Use Treatment: No <Rosalinda Flynn A - Last Filed: 03/28/18 20:17> Allergies/Home Meds <Rosalinda Flynn A - Last Filed: 03/28/18 20:17> <Jerrod Chavez - Last Filed: 03/28/18 20:45> Allergies/Adverse Reactions: Allergies azithromycin [From Zithromax] Allergy (Verified 07/25/15 00:08) RASH codeine Allergy (Verified 07/25/15 00:08) ANAPHYLAXIS meperidine HCl [From Demerol] Allergy (Verified 07/24/15 17:37) SWELLING morphine Allergy (Verified 07/24/15 17:37) SWELLING oxycodone HCl [From Percocet] Allergy (Verified 07/25/15 00:08) hives tramadol Allergy (Verified 07/24/15 17:37) SWELLING aspirin Adverse Reaction (Mild, Verified 07/02/17 23:17) NAUSEA hydrocodone bitartrate [From Vicodin] Adverse Reaction (Verified 07/25/15 00:08) NAUSEA zithromax Allergy (Uncoded 07/25/15 00:08) hives Home Medications: Home Meds Medication Instructions Recorded Confirmed Aspirin [Adult Low Dose Aspirin EC] 81 mg PO DAILY 07/03/17 07/03/17 Atorvastatin [Lipitor] 20 mg PO HS 07/03/17 07/03/17 Bisoprolol/HCTZ [Ziac 10-6.25 mg] DAILY 07/03/17 Gabapentin [Neurontin] 100 mg PO BID 07/03/17 07/03/17 Leflunomide [Arava] 20 mg PO DAILY 07/03/17 07/03/17 Meloxicam [Mobic] 15 mg PO DAILY 07/03/17 07/03/17 Review of Systems - Physician Review All systems were reviewed & negative as marked: Yes - Review of Systems Constitutional: Normal Eyes: Normal ENT: Normal Respiratory: Normal Cardiovascular: Normal Gastrointestinal: Normal Genitourinary Female: Normal Musculoskeletal: Normal Skin: Normal Neurological: Headache. absent: Dizziness, Focal Weakness, Gait Changes, Speech Changes, Facial Droop Endocrine: Normal Hemo/Lymphatic: Normal Psychiatric: Normal <Rosalinda Flynn A - Last Filed: 03/28/18 20:17> Physical Exam Vital Signs Reviewed: Yes Vital Signs Temp Pulse Resp BP Pulse Ox 03/28/18 17:05 97.6 F 90 18 183/113 H 99 Temperature: Afebrile Blood Pressure: Hypertensive Pulse: Regular Respiratory Rate: Normal Appearance: Positive for: Well-Appearing, Non-Toxic, Comfortable Pain Distress: None Mental Status: Positive for: Alert and Oriented X 3 - Systems Exam Head: Present: Atraumatic, Normocephalic Pupils: Present: PERRL Extroacular Muscles: Present: EOMI Conjunctiva: Present: Normal Mouth: Present: Moist Mucous Membranes Neck: Present: Normal Range of Motion Respiratory/Chest: Present: Clear to Auscultation, Good Air Exchange. No: Respiratory Distress, Accessory Muscle Use Cardiovascular: Present: Regular Rate and Rhythm, Normal S1, S2. No: Murmurs Abdomen: No: Tenderness, Distention, Peritoneal Signs Back: Present: Normal Inspection Upper Extremity: Present: Normal Inspection. No: Cyanosis, Edema Lower Extremity: Present: Normal Inspection. No: Edema Neurological: Present: GCS=15, CN II-XII Intact, Speech Normal, Motor Func Grossly Intact, Normal Sensory Function, Normal Cerebellar Funct, Norm Deep Tendon Reflexes, Gait Normal, Memory Normal, Normal 2Pt Descrimination, Other (No focal neurological deficit) Skin: Present: Warm, Dry, Normal Color. No: Rashes Psychiatric: Present: Alert, Oriented x 3, Normal Insight, Normal Concentration <RinaHappiness A - Last Filed: 03/28/18 20:17> Vital Signs Temp Pulse Resp BP Pulse Ox 03/28/18 20:30 79 197/98 H 03/28/18 19:45 72 196/108 H 03/28/18 17:05 97.6 F 90 18 183/113 H 99 <Jerrod Chavez - Last Filed: 03/28/18 20:45> Medical Decision Making ED Course and Treatment: 03/28/18 19:[address] 60yo female present with complaint of elevated BP, headache and lower spasm back pain. Labs Head CT EKG [id number] Solu medrol Tylenol Labetalol 20mg Per RN pt declined Solu medrol and Tyelnol in ED. On questioning she states she thinks her headache and back pain was allergic reaction to the Methylprednisone that her Doctor gave her. Ibuprofen will be ordered for her headache she will be reassess 03/28/18 20:11 On re evaluation pt BP 197/107 Another labetalol 20mg was ordered Pt will need admission for uncontrolled hypertension Dr. Fredrick reed case endorsed to Dr. Chvaez to f/u and dispo pt - Lab Interpretations Lab Results: Lab Results 03/28/18 18:30: pO2 160 H, VBG pH 7.44 H, VBG pCO2 40.0, VBG HCO3 27.2, VBG Total CO2 28.4 H, VBG O2 Sat (Calc) 98.4 H, VBG Base Excess 2.8 H, VBG Potassium 3.8, Sodium 140.0, Chloride 108.0 H, Glucose 126 H, Lactate 1.7, FiO2 21.0, Venous Blood Potassium 3.8 - RAD Interpretation Radiology Orders: 03/28/18 17:27 CHEST TWO VIEWS (PA/LAT) [RAD] Stat 03/28/18 17:30 HEAD W/O CONTRAST [CT] Stat - Medication Orders Current Medication Orders: Discontinued Medications Acetaminophen (Tylenol 325mg Tab) 650 mg PO STAT STA Stop: 03/28/18 17:28 Last Admin: 03/28/18 18:33 Dose: 650 mg Albuterol/Ipratropium (Duoneb 3 Mg/0.5 Mg (3 Ml) Ud) 3 ml IH STAT STA Stop: 03/28/18 17:28 Last Admin: 03/28/18 18:33 Dose: 3 ml Labetalol HCl (Trandate) 20 mg IV STAT STA Stop: 03/28/18 18:35 Methylprednisolone (Solu-Medrol) 125 mg IVP STAT STA Stop: 03/28/18 17:28 Last Admin: 03/28/18 18:33 Dose: 125 mg IVP Administration Document 03/28/18 18:33 HI (Rec: 03/28/18 18:33 HI [id number]) Charges for Administration # of IVP Administrations 1 <Rosalinda Flynn A - Last Filed: 03/28/18 20:17> ED Course and Treatment: 03/28/18 20:38 Case was discussed with .Accepts to her service.Will add Norvasc at this time. - Lab Interpretations Lab Results: 03/28/18 18:34 03/28/18 18:34 Lab Results 03/28/18 18:34: PT 11.6, INR 1.02, APTT 25.9 03/28/18 18:34: Sodium 140, Chloride 105, Potassium 3.8, Carbon Dioxide 27, Anion Gap 12, BUN 18, Creatinine 0.8, Est GFR ( Amer) > 60, Est GFR (Non- Af Amer) > 60, Random Glucose 128 H, Calcium 9.6, Magnesium 2.0, Total Bilirubin 0.5, AST 24, ALT 29, Alkaline Phosphatase 137 H, Lactate Dehydrogenase 552, Total Creatine Kinase 60, Troponin I < 0.01, Total Protein 7.7, Albumin 4.0, Globulin 3.7, Albumin/Globulin Ratio 1.1 03/28/18 18:34: WBC 11.5 H, RBC 4.80, Hgb 13.7, Hct 41.8, MCV 87.1, MCH 28.5, MCHC 32.8, RDW 14.1, Plt Count 318, MPV 9.5, Gran % 84.9 H, Lymph % (Auto) 11.6 L, [place] % (Auto) 3.4, Eos % (Auto) 0.0 L, Baso % (Auto) 0.1, Gran # 9.78 H, Lymph # (Auto) 1.3, [place] # (Auto) 0.4, Eos # (Auto) 0.0, Baso # (Auto) 0.01 03/28/18 18:30: pO2 160 H, VBG pH 7.44 H, VBG pCO2 40.0, VBG HCO3 27.2, VBG Total CO2 28.4 H, VBG O2 Sat (Calc) 98.4 H, VBG Base Excess 2.8 H, VBG Potassium 3.8, Sodium 140.0, Chloride 108.0 H, Glucose 126 H, Lactate 1.7, FiO2 21.0, Venous Blood Potassium 3.8 - RAD Interpretation Radiology Orders: 03/28/18 17:30 HEAD W/O CONTRAST [CT] Stat 03/28/18 19:05 CHEST TWO VIEWS (PA/LAT) [RAD] Stat - Medication Orders Current Medication Orders: Discontinued Medications Albuterol/Ipratropium (Duoneb 3 Mg/0.5 Mg (3 Ml) Ud) 3 ml IH STAT STA Stop: 03/28/18 17:28 Last Admin: 03/28/18 18:33 Dose: 3 ml Amlodipine Besylate (Norvasc) 10 mg PO STAT STA Stop: 03/28/18 20:37 Cyclobenzaprine HCl (Flexeril) 5 mg PO STAT STA Stop: 03/28/18 18:59 Last Admin: 03/28/18 19:45 Dose: 5 mg Ibuprofen (Motrin Tab) 600 mg PO STAT STA Stop: 03/28/18 19:20 Last Admin: 03/28/18 20:11 Dose: 600 mg Labetalol HCl (Trandate) 20 mg IV STAT STA Stop: 03/28/18 18:35 Last Admin: 03/28/18 19:45 Dose: 20 mg eMAR Start Stop Document 03/28/18 19:45 HI (Rec: 03/28/18 19:45 HI [id number]) Intravenous Solution Start Date 03/28/18 Start Time 19:45 [facility] Pulse and Blood Pressure Document 03/28/18 19:45 HI (Rec: 03/28/18 19:45 HI [id number]) Pulse Pulse Rate (60-90 beats/min) 72 Blood Pressure Blood Pressure (100/60-150/90 mm Hg) 196/108 Labetalol HCl (Trandate) 20 mg IV STAT STA Stop: 03/28/18 20:15 Last Admin: 03/28/18 20:30 Dose: 20 mg eMAR Start Stop Document 03/28/18 20:30 HI (Rec: 03/28/18 20:30 HI [id number]) Intravenous Solution Start Date 03/28/18 Start Time 20:30 MAR Pulse and Blood Pressure Document 03/28/18 20:30 HI (Rec: 03/28/18 20:30 HI [id number]) Pulse Pulse Rate (60-90 beats/min) 79 Blood Pressure Blood Pressure (100/60-150/90 mm Hg) 197/98 Methylprednisolone (Solu-Medrol) 125 mg IVP STAT STA Stop: 03/28/18 17:28 Last Admin: 03/28/18 18:33 Dose: 125 mg IVP Administration Document 03/28/18 18:33 HI (Rec: 03/28/18 18:33 HI [id number]) Charges for Administration # of IVP Administrations 1 <ScottJerrod - Last Filed: 03/28/18 20:45> - PA / SALES SERVICE TECHNICIAN / Resident Statement NEHAL has reviewed & agrees with the documentation as recorded. / has examined the patient and agrees with the treatment plan. <Jerrod Chavez - Last Filed: 03/28/18 20:45> Disposition/Present on Arrival - Present on Arrival Any Indicators Present on Arrival: No History of DVT/PE: No History of Uncontrolled Diabetes: No Urinary Catheter: No History of Decub. Ulcer: No History Surgical Site Infection Following: None - Disposition Have Diagnosis and Disposition been Completed?: Yes <Rosalinda Flynn - Last Filed: 03/28/18 20:17> - Present on Arrival Any Indicators Present on Arrival: No History of DVT/PE: No History of Uncontrolled Diabetes: No Urinary Catheter: No History of Decub. Ulcer: No History Surgical Site Infection Following: None - Disposition Have Diagnosis and Disposition been Completed?: Yes Disposition Time: 20:38 <ScottJerrod - Last Filed: 03/28/18 20:45> - Disposition Diagnosis: COPD (chronic obstructive pulmonary disease), Uncontrolled hypertension Disposition: HOSPITALIZED Patient Problems: Current Active Problems Problem Status Onset COPD (chronic obstructive pulmonary disease) Acute Uncontrolled hypertension Acute Condition: STABLE Referrals: Nayana Kirk MD [Primary Care Provider] - Follow up with primary Forms: [employer] (Korean)
[2018-03-28 19:00] LABS: TROPONIN I < 0.01 ng/mL
[2018-03-28] MEDS ORDERED: Oxycodone/Acetaminophen 5/325 mg Tab PO PRN (22:11)
[2018-03-28] MEDS ORDERED: Apap-Butalbital-Caffeine 325-50-40mg Tab PO PRN (22:13)
[2018-03-29 00:09] LABS: HDL CHOLESTEROL 52 mg/dL (29-60)
[2018-03-29 00:20] LABS: LDL CHOLESTEROL 131 mg/dL (0-129)
[2018-03-29 00:33] VITALS: BMI 35.6
[2018-03-29 01:25] LABS: BASO # 0.01 K/mm3 (0.0-2.0); BASO % 0.1 % (0.0-3.0); EOS % 0.1 % (1.5-5.0); GRAN # 8.26 (1.4-6.5); GRAN % 72.9 % (50.0-68.0); HEMOGLOBIN 12.8 g/dL (12.0-16.0); LYMPH # 2.7 (1.2-3.4); LYMPH % 23.7 % (22.0-35.0); MEAN CELL VOLUME 86.9 fl (80.0-105.0); MEAN CORPUSCULAR HGB CONC 33.3 g/dl (31.0-37.0); MEAN PLATELET VOLUME 9.2 fl (7.0-11.0); MONO # 0.4 (0.1-0.6); MONO % 3.2 % (1.0-6.0); RBC 4.42 10^6/uL (3.5-6.1); RED CELL DISTRIBUTION WIDTH 14.1 % (11.5-14.5); WHITE BLOOD COUNT 11.3 10^3/uL (4.5-11.0)
[2018-03-29 01:49] LABS: TROPONIN I < 0.01 ng/mL
[2018-03-29 02:07] LABS: ALBUMIN 3.6 g/dL (3.0-4.8); BLOOD UREA NITROGEN 17 mg/dL (7-21); CALCIUM 9.4 mg/dL (8.4-10.5); GFR NON-AFRICAN AMERICAN > 60
[2018-03-29 02:08] LABS: ALT/SGPT 23 U/L (7-56); AST/SGOT 25 U/L (14-36)
[2018-03-29] MEDS ORDERED: Potassium Chloride 20 mEq ER Tab PO ONE ×3 (02:15→11:23)
[2018-03-29 02:36] LABS: FREE T4 1.25 ng/dL (0.78-2.19)
--- NOTE | 2018-03-29 02:38 | HP ---
HISTORY OF PRESENT ILLNESS: The patient is a 63-year-old who came to emergency room because of headache, not feeling well. She thought her blood pressure is high when she checked at home it was around 180. She went to see her primary care doctor, two days ago with upper respiratory symptoms. She thought her headache is because of the sinus. She also complains of some cough, congestion and asthma like symptoms, so she was started on antibiotic and stable. Since then her headache got worse. She also complaints of lower back pain because of uncontrolled hypertension and headache. She called her primary care doctor, they advised her to come to the emergency room. No history of fever. No cough. Does have history of cough and congestion, complained of back pain. PAST MEDICAL HISTORY: Significant for 1. Hypertension. 2. Hyperlipidemia. 3. Rheumatoid arthritis. 4. Neuropathy. ALLERGIES: THE PATIENT HAS MULTIPLE ALLERGIES INCLUDING CODEINE, MEPERIDINE, MORPHINE, OXYCODONE, TRAMADOL, ASPIRIN, HYDROCODONE AND ZITHROMAX. MEDICATIONS: At home, she is on Mobic 15 mg daily, Arava 20 mg daily, Neurontin 100 mg twice a day, Lipitor 20 mg at bedtime, aspirin 81 mg daily, and bisoprolol 10/6.25 daily. SOCIAL HISTORY: She used to smoke heavy in the past, but quit. PHYSICAL EXAMINATION GENERAL: Complaints of headache and some congestion. VITAL SIGNS: She is afebrile, pulse 78, respiration 18, blood pressure 118/91. LUNGS: Bilateral fair airflow. No rhonchi or crackle. HEART: S1 and S2 audible. ABDOMEN: Soft, nontender. No rebound. No guarding. NEUROLOGIC: The patient awake, alert, oriented, and communicative. LABORATORY EXAMINATION: WBC 11.5, hemoglobin 13.7, hematocrit 41.8, and platelets of 318. Chemistry: Sodium 140, potassium 3.8, chloride 105, CO2 of 27, BUN 18, creatinine 0.8, blood sugar of 128. LFTs are within normal limits. Alk phos is 137. CT scan of the head is unremarkable. X-ray chest is negative. ASSESSMENT: 1. Uncontrolled hypertension. 2. Headache. 3. Upper respiratory infection. 4. Rheumatoid arthritis. PLAN: We will place the patient in observation and start IV antibiotics, started on . We will give a dose of Norvasc and clonidine as backup. We will resume his usual medication. We will follow up the patient in the a.m. If stable, possible discharge. Arina Alcala MD
[2018-03-29 08:29] VITALS: O2SAT 94
--- NOTE | 2018-03-29 10:00 | RAD ---
Date of service: 03/28/2018 HISTORY: cough/wheezing COMPARISON: 12/13/2016 and 07/02/2017. TECHNIQUE: Chest PA and lateral FINDINGS: LUNGS: Stable interstitial lung disease. PLEURA: No significant pleural effusion identified. No pneumothorax apparent. CARDIOVASCULAR: Atherosclerotic calcifications identified primarily aortic arch. No radiographic findings to suggest acute or significant cardiovascular disease. OSSEOUS STRUCTURES: No significant abnormalities. VISUALIZED UPPER ABDOMEN: Normal. OTHER FINDINGS: None. IMPRESSION: No active disease. No significant interval change compared to the prior examination(s).
--- NOTE | 2018-03-29 10:58 | CARD ---
APPROVED REPORT Date of service: 03/28/2018 EKG Measurement Heart [id number] <Conclusion> Normal sinus rhythm Nonspecific T wave abnormality
--- NOTE | 2018-03-29 11:09 | CARD ---
APPROVED REPORT Date of service: 03/29/2018 EKG Measurement Heart [id number] <Conclusion> Sinus tachycardia Left ventricular hypertrophy Inferior infarct, age undetermined NSSTW changes
[2018-03-29] MEDS: cefTRIAXone 1 gm 1 GM/100 ML BAG IVPB SCH ×2 (11:10→13:55)
[2018-03-29 11:15] LABS: BLOOD UREA NITROGEN 18 mg/dL (7-21); CALCIUM 9.5 mg/dL (8.4-10.5); GFR NON-AFRICAN AMERICAN > 60
[2018-03-29 14:12] VITALS: BP 148/78; PULSE 90; TEMP 98.2
--- NOTE | 2018-03-30 02:44 | DS ---
HISTORY OF PRESENT ILLNESS: The patient is 63 years old who was admitted with headache because of uncontrolled hypertension. The patient states because of the sinus infection, she was given steroids that raised her blood pressure. She has not been feeling well since she has been on steroid. Her blood pressure went up to 190 at home, so she was advised by her PMD to go to emergency room. The patient was given antihypertensive. When I saw the patient, she is symptom-free. No headache. No runny or stuffy nose. PHYSICAL EXAMINATION: GENERAL: She is awake, alert, oriented and communicative. VITAL SIGNS: She is afebrile. Pulse is 90, respirations 18 and blood pressure is 148/78. LUNGS: Bilateral fair airflow. No rhonchi or crackle. HEART: S1 and S2 audible. ABDOMEN: Soft, obese and nontender. No rebound. No guarding. NEUROLOGICAL: The patient is awake, alert, oriented and communicative. LABORATORY EXAMINATION: WBC 11.3, hemoglobin 12, hematocrit 38 and platelets of 303. Chemistry: Sodium 139, potassium 3.4, chloride 107, CO2 of 27, BUN 18, creatinine 0.7, blood sugar of 103 and cholesterol . ASSESSMENT: 1. Uncontrolled hypertension. 2. Headache secondary to uncontrolled hypertension and being on steroid. 3. Hyperlipidemia. 4. Resolving upper respiratory tract infection. 5. Generalized osteoarthritis. 6. [id number] diabetes. 7. History of asthma. PLAN: The patient is clinically stable, her blood pressure has been running well. The patient is being discharged home today. She will resume her medication. She is advised to stop her steroid and follow with PMD next week to adjust her blood pressure medication. Arina Alcala MD
== END 2018-03-29 18:09 | disposition home or self-care (01) ==
LOC: ED 16:17 → ERH 20:36 → 5RSO 23:17
PROVIDERS: ADMIT Internal Medicine; ATTEND Internal Medicine
DX: I10 Essential (primary) hypertension (principal); R51 Headache; J06.9 Acute upper respiratory infection, unspecified; E11.9 Type 2 diabetes mellitus without complications; J44.9 Chronic obstructive pulmonary disease, unspecified; M06.9 Rheumatoid arthritis, unspecified; E78.5 Hyperlipidemia, unspecified; M15.9 Polyosteoarthritis, unspecified; Z79.82 Long term (current) use of aspirin; Z79.84 Long term (current) use of oral hypoglycemic drugs; Z87.891 Personal history of nicotine dependence
CPT/HCPCS: 36415; 70450; 71046; 80053; 80061; 82550; 82803; 83615; 83735; 84100; 84439; 84443; 84484; 85025; 85610; 85730; 87040; 93005; 94640; 96374; 96375; 96376; 99285; G0378; J0360; J2930